=== PATIENT | female | born 1990 | race American Indian/Alaskan Native ===

== ENCOUNTER 2016-07-08 20:15 | Emergency (ER) | payer MEDICAID ==
[2016-07-08 20:31] VITALS: BP 139/93
[2016-07-08] MEDS ORDERED: PROVENTIL IH ONE (20:31)
--- NOTE | 2016-07-08 21:23 | Emergency Department Report ---
ED Asthma HPI - General Chief Complaint: Adult Asthma Stated Complaint: ASTHMA Time Seen by Provider: 07/08/16 21:18 Source: patient Mode of arrival: Ambulatory Limitations: No Limitations - History of Present Illness Initial Comments: 26-year-old -[place] female with a past medical history of asthma comes in reporting shortness of breathing and wheezing since Wednesday. Patient reports that she should feel Ventolin but has run out of medication on Wednesday as well she reports is her first attacks this year. She also reports that she suffers from allergies and takes Benadryl. Patient also reports a past medical history of hypertension and is currently on lisinopril 20 mg by mouth daily. Patient denies any other problems at this time he does admit that she feels better with the one treatment. - Related Data Previous Rx's Medication Instructions Recorded Last Taken Type HYDROcodone/APAP 10-325 [Steward 1 each PO Q6HR PRN #14 tablet 01/30/14 Unknown Rx 10-325 mg TAB] Amoxicillin/K Clav Tab [Augmentin 1 tab PO BID #20 tablet 08/08/14 Unknown Rx 875MG TAB] Loratadine [Claritin] 10 mg PO DAILY #30 tablet 08/08/14 Unknown Rx Prednisone [predniSONE 10 mg 10 mg PO .TAPER #1 tab.ds.pk 08/08/14 Unknown Rx (6-Day Pack, 21 Tabs)] Fluticasone/Salmeterol [Advair 1 puff IH BID #1 disk.w.dev 10/21/15 Unknown Rx Diskus 250-50 mcg] Albuterol Sulfate [Ventolin HFA] 2 puff IH Q4H PRN #1 hfa.aer.ad 07/08/16 Unknown Rx Cetirizine HCl [ZyrTEC] 10 mg PO QDAY #30 capsule 07/08/16 Unknown Rx Fluticasone [Flonase] 1 spray NS QDAY #1 bottle 07/08/16 Unknown Rx Allergies Allergy/AdvReac Type Severity Reaction Status Date / Time No Known Allergies Allergy Unverified 01/29/14 20:40 ED Review of Systems ROS: Stated complaint: ASTHMA Other details as noted in HPI Constitutional: denies: chills, fever Eyes: denies: eye pain, eye discharge, vision change ENT: denies: ear pain, throat pain Respiratory: shortness of breath, wheezing Cardiovascular: denies: chest pain, palpitations Endocrine: no symptoms reported Gastrointestinal: denies: abdominal pain, nausea, diarrhea Musculoskeletal: denies: back pain, joint swelling, arthralgia ED Past Medical Hx - Past Medical History Hx Hypertension: Yes Hx CVA: Yes Hx Congestive Heart Failure: No Hx Diabetes: No Hx Asthma: Yes Hx COPD: No Hx HIV: No - Surgical History Additional Surgical History: - Social History Smoking Status: Never Smoker Substance Use Type: None - Medications Home Medications: Home Medications Medication Instructions Recorded Confirmed Last Taken Type HYDROcodone/APAP 10-325 [Steward 1 each PO Q6HR PRN #14 tablet 01/30/14 10/20/15 Unknown Rx 10-325 mg TAB] Amoxicillin/K Clav Tab [Augmentin 1 tab PO BID #20 tablet 08/08/14 10/20/15 Unknown Rx 875MG TAB] Loratadine [Claritin] 10 mg PO DAILY #30 tablet 08/08/14 10/20/15 Unknown Rx Prednisone [predniSONE 10 mg 10 mg PO .TAPER #1 tab.ds.pk 08/08/14 10/20/15 Unknown Rx (6-Day Pack, 21 Tabs)] Fluticasone/Salmeterol [Advair 1 puff IH BID #1 disk.w.dev 10/21/15 Unknown Rx Diskus 250-50 mcg] Albuterol Sulfate [Ventolin HFA] 2 puff IH Q4H PRN #1 hfa.aer.ad 07/08/16 Unknown Rx Cetirizine HCl [ZyrTEC] 10 mg PO QDAY #30 capsule 07/08/16 Unknown Rx Fluticasone [Flonase] 1 spray NS QDAY #1 bottle 07/08/16 Unknown Rx ED Physical Exam - General Limitations: No Limitations - Eye Eye exam: Present: normal appearance, PERRL, EOMI - ENT ENT exam: Present: normal exam - Neck Neck exam: Present: normal inspection - Respiratory Respiratory exam: Present: normal lung sounds bilaterally - Cardiovascular Cardiovascular Exam: Present: regular rate, normal rhythm, normal heart sounds - GI/Abdominal GI/Abdominal exam: Present: soft. Absent: distended, tenderness ED Course Vital Signs 07/08/16 07/08/16 07/08/16 20:23 20:39 20:49 Temperature 98.2 F Pulse Rate 65 Pulse Rate [ 71 74 Anterior Bilateral Throughout] Respiratory 20 Rate Respiratory 16 16 Rate [Anterior Bilateral Throughout] Blood Pressure 139/93 Blood Pressure 139/93 [Left] O2 Sat by Pulse 100 Oximetry - Reevaluation(s) Reevaluation #1: 07/08/16 21:20 Patient reports she feels much better after having the one treatment. ED Medical Decision Making - Medical Decision Making Patient has been evaluated by this provider fast track. Discussed the patient that we will refill her Ventolin I will place her on Zyrtec for Flonase for allergies for her to continue with her lisinopril 20 mg daily and follow-up with her primary care provider. Patient verbalized understanding Critical care attestation.: If time is entered above; I have spent that time in minutes in the direct care of this critically ill patient, excluding procedure time. ED Disposition Clinical Impression: Acute asthma exacerbation Qualifiers: Asthma severity: unspecified severity Qualified Code(s): J45.901 - Unspecified asthma with (acute) exacerbation Seasonal allergic rhinitis Qualifiers: Allergic rhinitis trigger: unspecified Qualified Code(s): J30.2 - Other seasonal allergic rhinitis Disposition: DISCHARGED TO HOME OR SELFCARE Is pt being admited?: No Does the pt Need Aspirin: No Condition: Stable Additional Instructions: These take the Zyrtec; Flonase as prescribed. Use the Ventolin when necessary for shortness of breath and wheezing. Follow up with her primary care provider for further evaluation. Prescriptions: Albuterol Sulfate [Ventolin HFA] 2 puff IH Q4H PRN #1 hfa.aer.ad PRN Reason: Shortness Of Breath Cetirizine HCl [ZyrTEC] 10 mg PO QDAY #30 capsule Fluticasone [Flonase] 1 spray NS QDAY #1 bottle Forms: Work/School Release Form(ED)
== END 2016-07-08 22:02 | disposition home or self-care (01) ==
LOC: ED 20:15
DX: J45.901 Unspecified asthma with (acute) exacerbation (principal); J30.2 Other seasonal allergic rhinitis; I63.9 Cerebral infarction, unspecified
CPT/HCPCS: 94640

== ENCOUNTER 2016-07-16 08:54 | Emergency (ER) | payer MEDICAID ==
[2016-07-16 09:48] VITALS: BP 140/71
--- NOTE | 2016-07-16 11:11 | Emergency Department Report ---
ED Asthma HPI - General Chief Complaint: Adult Asthma Stated Complaint: LILO Time Seen by Provider: 07/16/16 11:04 Source: patient Mode of arrival: Ambulatory Limitations: No Limitations - History of Present Illness Initial Comments: 26-year-old -[place] female with a past medical history of asthma and wheezing comes in for wheezing this has been present for the last 2 weeks. Patient reports that she was transported here by EMS and was given a nebulizer treatment in route to the hospital. Patient was recently seen here on 2016 for the same issue. Patient does complain of chest soreness from coughing and only hurts when she coughs. Patient is currently on Flonase Zyrtec Ventolin for her asthma. She has no known drug allergies MD Complaint: wheezing - Related Data Previous Rx's Medication Instructions Recorded Last Taken Type Prednisone [predniSONE 10 mg 10 mg PO .TAPER #1 tab.ds.pk 08/08/14 Unknown Rx (6-Day Pack, 21 Tabs)] Fluticasone/Salmeterol [Advair 1 puff IH BID #1 disk.w.dev 10/21/15 Unknown Rx Diskus 250-50 mcg] Albuterol Sulfate [Ventolin HFA] 2 puff IH Q4H PRN #1 hfa.aer.ad 07/08/16 Unknown Rx Cetirizine HCl [ZyrTEC] 10 mg PO QDAY #30 capsule 07/08/16 Unknown Rx Fluticasone [Flonase] 1 spray NS QDAY #1 bottle 07/08/16 Unknown Rx Fluticasone/Salmeterol [Advair 2 puff PO BID #1 blst.w.dev 07/16/16 Unknown Rx 250-50 Diskus] Allergies Allergy/AdvReac Type Severity Reaction Status Date / Time No Known Allergies Allergy Unverified 01/29/14 20:40 ED Review of Systems ROS: Stated complaint: LILO Other details as noted in HPI Constitutional: denies: chills, fever Eyes: denies: eye pain, eye discharge, vision change ENT: denies: ear pain, throat pain Respiratory: cough, wheezing Cardiovascular: denies: chest pain, palpitations Endocrine: no symptoms reported Gastrointestinal: denies: abdominal pain, nausea, diarrhea Genitourinary: denies: urgency, dysuria, discharge ED Past Medical Hx - Past Medical History Hx Hypertension: Yes Hx CVA: Yes Hx Congestive Heart Failure: No Hx Diabetes: No Hx Asthma: Yes Hx COPD: No Hx HIV: No - Surgical History Additional Surgical History: - Social History Smoking Status: Never Smoker Substance Use Type: None - Medications Home Medications: Home Medications Medication Instructions Recorded Confirmed Last Taken Type Prednisone [predniSONE 10 mg 10 mg PO .TAPER #1 tab.ds.pk 08/08/14 10/20/15 Unknown Rx (6-Day Pack, 21 Tabs)] Fluticasone/Salmeterol [Advair 1 puff IH BID #1 disk.w.dev 10/21/15 Unknown Rx Diskus 250-50 mcg] Albuterol Sulfate [Ventolin HFA] 2 puff IH Q4H PRN #1 hfa.aer.ad 07/08/16 Unknown Rx Cetirizine HCl [ZyrTEC] 10 mg PO QDAY #30 capsule 07/08/16 Unknown Rx Fluticasone [Flonase] 1 spray NS QDAY #1 bottle 07/08/16 Unknown Rx Fluticasone/Salmeterol [Advair 2 puff PO BID #1 blst.w.dev 07/16/16 Unknown Rx 250-50 Diskus] ED Physical Exam - General Limitations: No Limitations General appearance: alert, in no apparent distress - Eye Eye exam: Present: normal appearance, EOMI - ENT ENT exam: Present: mucous membranes moist - Respiratory Respiratory exam: Present: normal lung sounds bilaterally, chest wall tenderness - Cardiovascular Cardiovascular Exam: Present: regular rate, normal rhythm, normal heart sounds - GI/Abdominal GI/Abdominal exam: Present: soft. Absent: distended, tenderness ED Course Vital Signs 07/16/16 09:41 Temperature 97.9 F Pulse Rate 73 Respiratory 18 Rate Blood Pressure 140/71 O2 Sat by Pulse 100 Oximetry ED Medical Decision Making - Medical Decision Making Patient's been evaluated by this provider in fast track. Discussed the patient and give her Tylenol No. 3 that would help with cough suppressant as well as her chest soreness. Discussed the patient op place her back on Advair 250/50 g 1 puff twice a day. Also recommend patient to continue with her other asthma and allergy medication and follow-up with [facility] which she reports is her primary care provider. Critical care attestation.: If time is entered above; I have spent that time in minutes in the direct care of this critically ill patient, excluding procedure time. ED Disposition Disposition: DISCHARGED TO HOME OR SELFCARE Is pt being admited?: No Does the pt Need Aspirin: No Condition: Stable Additional Instructions: Please use your asthma medicine as prescribed. Follow-up with [facility] for further evaluation. Prescriptions: Fluticasone/Salmeterol [Advair 250-50 Diskus] 2 puff PO BID #1 blst.w.dev Referrals: PRIMARY CARE, [Primary Care Provider] - 3-5 Days [facility] [Outside] - 3-5 Days Forms: Work/School Release Form(ED)
[2016-07-16] MEDS ORDERED: TYLENOL #3 PO ONE (11:12)
== END 2016-07-16 11:35 | disposition home or self-care (01) ==
LOC: ED 08:54
DX: J45.909 Unspecified asthma, uncomplicated (principal); I10 Essential (primary) hypertension; I63.9 Cerebral infarction, unspecified
CPT/HCPCS: 99282

== ENCOUNTER 2016-10-03 22:08 | Emergency (ER) | payer MEDICAID ==
[2016-10-03 23:38] LABS: Basophils % (Auto) 1.3 % (0.0-1.8); Eosinophils % (Auto) 3.6 % (0.0-4.3); Hematocrit 37.9 % (30.3-42.9); Hemoglobin 12.5 gm/dl (10.1-14.3); Mean Corpuscular HGB Conc 33 % (30-34); Mean Corpuscular Hemoglobin 29 pg (28-32); Mean Corpuscular Volume 88 fl (79-97); Platelet Count 274 K/mm3 (140-440); Red Blood Count 4.31 M/mm3 (3.65-5.03); White Blood Count 5.7 K/mm3 (4.5-11.0)
[2016-10-03 23:39] LABS: Anion Gap 15 mmol/L; Blood Urea Nitrogen 7 mg/dL (7-17); Calcium 9.2 mg/dL (8.4-10.2); Carbon Dioxide 25 mmol/L (22-30); Chloride 104.7 mmol/L (98-107); Glucose 88 mg/dL (65-100); Potassium 3.6 mmol/L (3.6-5.0); Sodium 141 mmol/L (137-145)
[2016-10-03] MEDS ORDERED: NACL 0.9% 500 ML 500 ML IV ONE (23:50)
[2016-10-03] MEDS ORDERED: REGLAN IV PRN (23:50)
[2016-10-03] MEDS ORDERED: BENADRYL IV ONE (23:50)
[2016-10-03 23:56] LABS: Erythrocyte Sedimentation Rate 10 mm/Hr (0-20)
[2016-10-04 00:03] LABS: Bilirubin,Urine NEG (Negative); Blood,Urine NEG (Negative); Ketones,Urine NEG (Negative); Leukocyte Esterase,Urine TR (Negative); Mucus,Urine FEW /HPF; Nitrite,Urine NEG (Negative); Protein,Urine <15 mg/dL mg/dL (Negative); Urobilinogen,Urine < 2.0 mg/dL (<2.0)
[2016-10-04] MEDS ORDERED: REGLAN IV ONE (00:22)
--- NOTE | 2016-10-04 01:11 | Cat Scan Report ---
FINAL REPORT PROCEDURE: CT HEAD/BRAIN WO CON TECHNIQUE: Computerized tomography of the head was performed without contrast material. HISTORY: headache COMPARISON: No prior studies are available for comparison. FINDINGS: Skull and scalp: Normal. Paranasal sinuses: Normal. Ventricles and subarachnoid spaces: Normal. Cerebrum: No evidence of hemorrhage, acute infarction or mass . Cerebellum and brainstem: No evidence of hemorrhage, acute infarction or mass. Vasculature: Normal. Comments: None. IMPRESSION: Normal Examination
--- NOTE | 2016-10-04 01:27 | Emergency Department Report ---
ED Headache HPI - General Chief Complaint: Headache Stated Complaint: HEADACHE Source: patient - History of Present Illness Initial Comments: Vision states she has a long history of this type of headache but this one is a little worse patient states she has never been seen for her headaches is never had a CAT scan for her headaches and takes random medications at home for her medics to include gabapentin which was not prescribed to her for her headaches. Patient denies any blurred vision, neck pain, photophobia, nausea vomiting, paresthesia, weakness or dizziness. Timing/Duration: 1-3 hours Quality: severe Head Injury Location: temporal Recent Head Trauma: frequent headaches, chronic headaches Associated Symptoms: denies: confusion, fatigue, facial pain, fever/chills, flushing, loss of consciousness, nausea/vomiting, nasal congestion, nasal drainage, numbness in legs/feet, seizures, sinus infection, vision changes, weakness Allergies/Adverse Reactions: Allergies No Known Allergies Allergy (Unverified 01/29/14 20:40) Home Medications: Ambulatory Orders Prednisone [predniSONE 10 mg (6-Day Pack, 21 Tabs)] 10 mg PO .TAPER #1 tab.ds.pk 08/08/14 Fluticasone/Salmeterol [Advair Diskus 250-50 mcg] 1 puff IH BID #1 disk.w.dev Albuterol Sulfate [Ventolin HFA] 2 puff IH Q4H PRN #1 hfa.aer.ad 07/08/16 Cetirizine HCl [ZyrTEC] 10 mg PO QDAY #30 capsule 07/08/16 Fluticasone [Flonase] 1 spray NS QDAY #1 bottle 07/08/16 Fluticasone/Salmeterol [Advair 250-50 Diskus] 2 puff PO BID #1 blst.w.dev Butalb/Acetamin/Caff 50-325-40 [Fioricet] 1 each PO Q4H PRN #15 tablet 10/04/16 Metoclopramide [Reglan] 10 mg IM TID PRN #15 vial 10/04/16 ED Review of Systems ROS: Stated complaint: HEADACHE Other details as noted in HPI ED Past Medical Hx - Past Medical History Previous Medical History?: Yes Hx Hypertension: Yes Hx CVA: No Hx Congestive Heart Failure: No Hx Diabetes: No Hx Asthma: Yes Hx COPD: No Hx HIV: No - Surgical History Past Surgical History?: Yes Additional Surgical History: - Social History Smoking Status: Current Some Day Smoker Substance Use Type: Alcohol - Medications Home Medications: Home Medications Medication Instructions Recorded Confirmed Last Taken Type Prednisone [predniSONE 10 mg 10 mg PO .TAPER #1 tab.ds.pk 08/08/14 10/20/15 Unknown Rx (6-Day Pack, 21 Tabs)] Fluticasone/Salmeterol [Advair 1 puff IH BID #1 disk.w.dev 10/21/15 Unknown Rx Diskus 250-50 mcg] Albuterol Sulfate [Ventolin HFA] 2 puff IH Q4H PRN #1 hfa.aer.ad 07/08/16 Unknown Rx Cetirizine HCl [ZyrTEC] 10 mg PO QDAY #30 capsule 07/08/16 Unknown Rx Fluticasone [Flonase] 1 spray NS QDAY #1 bottle 07/08/16 Unknown Rx Fluticasone/Salmeterol [Advair 2 puff PO BID #1 blst.w.dev 07/16/16 Unknown Rx 250-50 Diskus] Butalb/Acetamin/Caff 50-325-40 1 each PO Q4H PRN #15 tablet 10/04/16 Unknown Rx [Fioricet] Metoclopramide [Reglan] 10 mg IM TID PRN #15 vial 10/04/16 Unknown Rx ED Physical Exam - General Limitations: No Limitations General appearance: alert, in no apparent distress - Head Head exam: Present: atraumatic, normocephalic - Eye Eye exam: Present: normal appearance, PERRL, EOMI - ENT ENT exam: Present: mucous membranes moist - Neck Neck exam: Present: normal inspection, full ROM. Absent: tenderness, meningismus, lymphadenopathy - Respiratory Respiratory exam: Present: normal lung sounds bilaterally. Absent: respiratory distress - Cardiovascular Cardiovascular Exam: Present: regular rate - Back Exam Back exam: Present: full ROM - Neurological Exam Neurological exam: Present: alert, oriented X3, CN II-XII intact, normal gait - Psychiatric Psychiatric exam: Present: normal affect, normal mood. Absent: depressed, agitated, anxious, flat affect, manic, homicidal ideation, suicidal ideation - Skin Skin exam: Present: warm, dry, intact, normal color. Absent: rash ED Course Vital Signs 10/03/16 22:31 Temperature 98.7 F Pulse Rate 73 Respiratory 18 Rate Blood Pressure 139/90 O2 Sat by Pulse 100 Oximetry - Reevaluation(s) Reevaluation #1: 10/04/16 01:30 Patient states headache is totally resolved, patient is smiling, states she is ready for discharge. I discussed with patient the need for her to follow up with a neurologist or even a primary care physician outside of the emergency department to find out the origin of her headaches. I did review the results of her normal labs and normal CAT scan with her. ED Medical Decision Making - Lab Data Result diagrams: 10/03/16 23:07 10/03/16 23:07 - Radiology Data Radiology results: report reviewed Critical care attestation.: If time is entered above; I have spent that time in minutes in the direct care of this critically ill patient, excluding procedure time. ED Disposition Clinical Impression: Headache Disposition: DC-01 TO HOME OR SELFCARE Is pt being admited?: No Condition: Stable Instructions: Acute Headache (ED) Prescriptions: Butalb/Acetamin/Caff 50-325-40 [Fioricet] 1 each PO Q4H PRN #15 tablet PRN Reason: Headache Metoclopramide [Reglan] 10 mg IM TID PRN #15 vial PRN Reason: Headache Referrals: PRIMARY CARE, [Primary Care Provider] - 3-5 Days CEFERINO GATES MD [Referring] - 3-5 Days
[2016-10-04 01:40] VITALS: BP 145/92
== END 2016-10-04 01:46 | disposition home or self-care (01) ==
LOC: ED 22:08
DX: R51 Headache (principal); I10 Essential (primary) hypertension; J45.909 Unspecified asthma, uncomplicated; F17.210 Nicotine dependence, cigarettes, uncomplicated
CPT/HCPCS: 36415; 70450; 80048; 81001; 81025; 84703; 85025; 85652; 96374; 96375; 99284; J1200; J7040; J2765

== ENCOUNTER 2018-07-10 14:25 | Emergency (ER) | payer MEDICAID ==
[2018-07-10 14:36] VITALS: BP 144/90
--- NOTE | 2018-07-10 15:58 | XRay Report ---
PROCEDURE: XR CHEST ROUTINE 2V TECHNIQUE: PA and lateral HISTORY: sob and wheezing COMPARISONS: None FINDINGS: Trachea midline. Heart size normal. No pneumothorax. No sizable effusion. No acute airspace disease. No acute bony abnormality. IMPRESSION: No active pulmonary disease.. This document is electronically signed by Juan Ramon Fraire MD., Jul 10 2018 03:56:25 PM ET
[2018-07-10] MEDS ORDERED: DUONEB *Not for PRN Use IH ONE (17:08)
[2018-07-10] MEDS ORDERED: IBUPROFEN PO ONE (17:25)
[2018-07-10] MEDS ORDERED: DELTASONE PO ONE (17:25)
--- NOTE | 2018-07-10 17:46 | Emergency Department Report ---
- General Chief Complaint: Upper Respiratory Infection Stated Complaint: ASTHMA/HEADACHE Time Seen by Provider: 07/10/18 17:24 Source: patient Mode of arrival: Ambulatory Limitations: No Limitations - History of Present Illness Initial Comments: Patient was terminated the emergency room history of asthma as shortness of breath with wheezing 3 days. Patient has had asthma symptoms as 4/10 on 1-10 scale. Symptoms are exacerbated by environmental exposure, symptoms relieved by nothing st but has not she is out of albuterol inhaler. MD Complaint: cough (endocrine ER visit: She needs to I mild stridor,), sore throat, rhinorrhea ( no), nasal congestion ( colds that F without via), sinus pain Onset/Timin -: week(s) Severity: moderate Severity scale (0 -10): 5 (1) Consistency: constant Improves With: nothing (current) Worsens With: other (environmental exposure ) Context: sick contacts Associated Symptoms: headache, rhinorrhea, nasal congestion, sore throat, cough, shortness of breath Treatments Prior to Arrival: none - Related Data Previous Rx's Medication Instructions Recorded Last Taken Type Prednisone [predniSONE 10 mg 10 mg PO .TAPER #1 tab.ds.pk 08/08/14 Unknown Rx (6-Day Pack, 21 Tabs)] Fluticasone/Salmeterol [Advair 1 puff IH BID #1 disk.w.dev 10/21/15 Unknown Rx Diskus 250-50 mcg] Albuterol Sulfate [Ventolin HFA] 2 puff IH Q4H PRN #1 hfa.aer.ad 07/08/16 Unknown Rx Cetirizine HCl [ZyrTEC] 10 mg PO QDAY #30 capsule 07/08/16 Unknown Rx Fluticasone [Flonase] 1 spray NS QDAY #1 bottle 07/08/16 Unknown Rx Fluticasone/Salmeterol (Nf) 2 puff PO BID #1 blst.w.dev 07/16/16 Unknown Rx [Advair 250-50 Diskus] Butalb/Acetamin/Caff 50-325-40 1 each PO Q4H PRN #15 tablet 10/04/16 Unknown Rx [Fioricet] Metoclopramide [Reglan] 10 mg IM TID PRN #15 vial 10/04/16 Unknown Rx ALBUTEROL Inhaler(NF) [VENTOLIN 2 puff IH Q4H PRN #1 inha 07/10/18 Unknown Rx Inhaler(NF)] Azithromycin [Zithromax Z-ANGEL] 250 mg PO DAILY #6 tab 07/10/18 Unknown Rx Benzonatate [Tessalon Perles] 100 mg PO Q8HR PRN #30 capsule 07/10/18 Unknown Rx Ibuprofen 800 mg PO TID PRN #30 tablet 07/10/18 Unknown Rx predniSONE [Deltasone] 40 mg PO QDAY 5 Days #10 tab 07/10/18 Unknown Rx Allergies Allergy/AdvReac Type Severity Reaction Status Date / Time No Known Allergies Allergy Unverified 01/29/14 20:40 ED Review of Systems ROS: Stated complaint: ASTHMA/HEADACHE Other details as noted in HPI Constitutional: denies: chills, fever Eyes: denies: eye pain, eye discharge, vision change ENT: throat pain (she moves above. This is no contact. His), congestion (while in) Respiratory: cough, shortness of breath, wheezing Cardiovascular: denies: chest pain, palpitations Endocrine: no symptoms reported (in the) Gastrointestinal: denies: abdominal pain, nausea, vomiting, diarrhea Genitourinary: as per HPI. denies: urgency, dysuria, discharge Musculoskeletal: denies: back pain, joint swelling, arthralgia Skin: denies: rash, lesions Neurological: headache (is). denies: weakness, paresthesias Psychiatric: denies: anxiety, depression Hematological/Lymphatic: denies: easy bleeding, easy bruising ED Past Medical Hx - Past Medical History Previous Medical History?: Yes Hx Hypertension: Yes Hx CVA: No Hx Congestive Heart Failure: No Hx Diabetes: No Hx Asthma: Yes Hx COPD: No Hx HIV: No - Surgical History Past Surgical History?: Yes Additional Surgical History: - Social History Smoking Status: Never Smoker Substance Use Type: None - Medications Home Medications: Home Medications Medication Instructions Recorded Confirmed Last Taken Type Prednisone [predniSONE 10 mg 10 mg PO .TAPER #1 tab.ds.pk 15 10/20/15 Unknown Rx (6-Day Pack, 21 Tabs)] Fluticasone/Salmeterol [Advair 1 puff IH BID #1 disk.w.dev 10/21/15 Unknown Rx Diskus 250-50 mcg] Albuterol Sulfate [Ventolin HFA] 2 puff IH Q4H PRN #1 hfa.aer.ad 07/08/16 Unknown Rx Cetirizine HCl [ZyrTEC] 10 mg PO QDAY #30 capsule 07/08/16 Unknown Rx Fluticasone [Flonase] 1 spray NS QDAY #1 bottle 07/08/16 Unknown Rx Fluticasone/Salmeterol (Nf) 2 puff PO BID #1 blst.w.dev 07/16/16 Unknown Rx [Advair 250-50 Diskus] Butalb/Acetamin/Caff 50-325-40 1 each PO Q4H PRN #15 tablet 10/04/16 Unknown Rx [Fioricet] Metoclopramide [Reglan] 10 mg IM TID PRN #15 vial 10/04/16 Unknown Rx ALBUTEROL Inhaler(NF) [VENTOLIN 2 puff IH Q4H PRN #1 inha 07/10/18 Unknown Rx Inhaler(NF)] Azithromycin [Zithromax Z-ANGEL] 250 mg PO DAILY #6 tab 07/10/18 Unknown Rx Benzonatate [Tessalon Perles] 100 mg PO Q8HR PRN #30 capsule 07/10/18 Unknown Rx Ibuprofen 800 mg PO TID PRN #30 tablet 07/10/18 Unknown Rx predniSONE [Deltasone] 40 mg PO QDAY 5 Days #10 tab 07/10/18 Unknown Rx ED Physical Exam - General Limitations: No Limitations General appearance: alert, in no apparent distress - Head Head exam: Present: atraumatic, normocephalic, normal inspection ( level of) - Eye Eye exam: Present: normal appearance, PERRL, EOMI ( is) Pupils: Present: normal accommodation - ENT ENT exam: Present: normal orophraynx, mucous membranes moist, TM's normal bilaterally, normal external ear exam - Neck Neck exam: Present: normal inspection, full ROM. Absent: tenderness, meningismus, lymphadenopathy, thyromegaly - Respiratory Respiratory exam: Present: wheezes, chest wall tenderness (right lateral chest wall pain with cough). Absent: rales, rhonchi, stridor (abdomen is) - Cardiovascular Cardiovascular Exam: Present: regular rate, normal rhythm. Absent: systolic murmur, diastolic murmur, rubs, gallop - GI/Abdominal GI/Abdominal exam: Present: soft, normal bowel sounds. Absent: tenderness, br uit, hernia ( time there is no) - Rectal Rectal exam: Present: deferred - Extremities Exam Extremities exam: Present: normal inspection (level patient), full ROM ( is), normal capillary refill ( out of lithotomy, there is no), pedal edema - Back Exam Back exam: Present: normal inspection (twice,), full ROM. Absent: tenderness, CVA tenderness (R), CVA tenderness (L), rash noted (he is) - Neurological Exam Neurological exam: Present: alert, oriented X3, CN II-XII intact, normal gait, reflexes normal - Psychiatric Psychiatric exam: Present: normal affect, normal mood - Skin Skin exam: Present: warm, dry, intact, normal color. Absent: rash ED Course Vital Signs 07/10/18 07/10/18 07/10/18 14:33 17:02 17:39 Temperature 98.3 F Pulse Rate 91 H Respiratory 18 16 16 Rate Blood Pressure 144/90 O2 Sat by Pulse 97 98 Oximetry ED Medical Decision Making - Radiology Data Radiology results: report reviewed, image reviewed lainey cxr no infiltrates no opacities - Medical Decision Making breathing improved , pt is ambulatory without increased wheezing and shortness of breath plan dc to home with rx for albuterol inhale,prednisone, tessalon pears, and ibuprofen, pt verbalized agreement and understanding and of discharge plan. Critical care attestation.: If time is entered above; I have spent that time in minutes in the direct care of this critically ill patient, excluding procedure time. ED Disposition Clinical Impression: Bronchitis Disposition: DC-01 TO HOME OR SELFCARE Is pt being admited?: No Does the pt Need Aspirin: No Condition: Stable Instructions: Acute Bronchitis (ED) Prescriptions: predniSONE [Deltasone] 40 mg PO QDAY 5 Days #10 tab Ibuprofen 800 mg PO TID PRN #30 tablet PRN Reason: pain fever . Benzonatate [Tessalon Perles] 100 mg PO Q8HR PRN #30 capsule PRN Reason: Cough ALBUTEROL Inhaler(NF) [VENTOLIN Inhaler(NF)] 2 puff IH Q4H PRN #1 inha PRN Reason: shortness of breath wheezing Azithromycin [Zithromax Z-ANGEL] 250 mg PO DAILY #6 tab Referrals: [facility] [Outside] - 3-5 Days Forms: Work/School Release Form(ED) Time of Disposition: 17:57
== END 2018-07-10 18:17 | disposition home or self-care (01) ==
LOC: ED 14:25
DX: J45.909 Unspecified asthma, uncomplicated (principal); I10 Essential (primary) hypertension
CPT/HCPCS: 71046; 94640; 99283; J7512

== ENCOUNTER 2018-09-18 05:35 | Emergency (ER) | payer MEDICAID ==
[2018-09-18] MEDS ORDERED: DUONEB *Not for PRN Use IH ONE ×2 (05:52→05:57)
[2018-09-18] MEDS ORDERED: SOLU-Medrol ONE (05:52)
[2018-09-18] MEDS ORDERED: SOLU-Medrol IM ONE (05:57)
--- NOTE | 2018-09-18 06:42 | XRay Report ---
CHEST 1 VIEW INDICATION / CLINICAL INFORMATION: LILO. COMPARISON: None available. FINDINGS: SUPPORT DEVICES: None. HEART / MEDIASTINUM: No significant abnormality. LUNGS / PLEURA: No significant pulmonary or pleural abnormality. No pneumothorax. ADDITIONAL FINDINGS: No significant additional findings. IMPRESSION: 1. No acute findings. Signer Name: Desmond David MD Signed: 09/18/2018 6:38 AM Workstation Name: [id number]
--- NOTE | 2018-09-18 07:38 | Emergency Department Report ---
ED Shortness of Breath HPI - General Chief Complaint: Dyspnea/Respdistress Stated Complaint: ASTHMA Time Seen by Provider: 09/18/18 07:32 Source: patient, EMS Mode of arrival: Ambulatory Limitations: No Limitations - History of Present Illness Initial Comments: This is a 28-year-old female nontoxic, well nourished in appearance, no acute signs of distress presents to the ED with c/o of acute on chronic asthma exacerbation. Patient stated she is out of her albuterol inhaler 1 month. Patient stated that she has seasonal allergies to pollen and has been outside that might have triggered her symptoms. Patient denies any cough. Patient denies any sick contact. Patient denies any recent travels, long car, recent hospital stays. Patient denies any calf pain or calf tenderness. Patient denies any chest pain, short of breath, fever, chills, nausea, vomiting, hemoptysis, numbness, tingling, headache or stiff neck. Past medical history includes asthma. MD Complaint: shortness of breath, "asthma attack" -: days(s) Severity: mild Pain Scale: 0 Improves With: nothing Worsens With: nothing Known History Of: asthma Associated Symptoms: denies other symptoms Treatments Prior to Arrival: none - Related Data Home Oxygen Therapy: No Previous Rx's Medication Instructions Recorded Last Taken Type Prednisone [predniSONE 10 mg 10 mg PO .TAPER #1 tab.ds.pk 08/08/14 Unknown Rx (6-Day Pack, 21 Tabs)] Fluticasone/Salmeterol [Advair 1 puff IH BID #1 disk.w.dev 10/21/15 Unknown Rx Diskus 250-50 mcg] Albuterol Sulfate [Ventolin HFA] 2 puff IH Q4H PRN #1 hfa.aer.ad 07/08/16 Unknown Rx Cetirizine HCl [ZyrTEC 10mg cap] 10 mg PO QDAY #30 capsule 07/08/16 Unknown Rx Fluticasone [Flonase] 1 spray NS QDAY #1 bottle 07/08/16 Unknown Rx Fluticasone/Salmeterol (Nf) 2 puff PO BID #1 blst.w.dev 07/16/16 Unknown Rx [Advair 250-50 Diskus] Butalb/Acetamin/Caff 50-325-40 1 each PO Q4H PRN #15 tablet 10/04/16 Unknown Rx [Fioricet] Metoclopramide [Reglan] 10 mg IM TID PRN #15 vial 10/04/16 Unknown Rx ALBUTEROL Inhaler(NF) [VENTOLIN 2 puff IH Q4H PRN #1 inha 07/10/18 Unknown Rx Inhaler(NF)] Azithromycin [Zithromax Z-ANGEL] 250 mg PO DAILY #6 tab 07/10/18 Unknown Rx Benzonatate [Tessalon Perles] 100 mg PO Q8HR PRN #30 capsule 07/10/18 Unknown Rx Ibuprofen [Ibuprofen 800] 800 mg PO TID PRN #30 tablet 07/10/18 Unknown Rx predniSONE [Deltasone] 40 mg PO QDAY 5 Days #10 tab 07/10/18 Unknown Rx ALBUTEROL Inhaler (OR & NICU) 2 puff IH QID PRN #1 inhalation 09/18/18 Unknown Rx [ProAir HFA Inhaler] Prednisone [predniSONE 10 mg 10 mg PO .TAPER #1 tab.ds.pk 09/18/18 Unknown Rx (6-Day Pack, 21 Tabs)] Allergies Allergy/AdvReac Type Severity Reaction Status Date / Time No Known Allergies Allergy Unverified 01/29/14 20:40 ED Review of Systems ROS: Stated complaint: ASTHMA Other details as noted in HPI Constitutional: denies: chills, fever Eyes: denies: eye pain, eye discharge, vision change ENT: denies: ear pain, throat pain Respiratory: shortness of breath, wheezing. denies: cough Cardiovascular: denies: chest pain, palpitations Endocrine: no symptoms reported Gastrointestinal: denies: abdominal pain, nausea, diarrhea Genitourinary: denies: urgency, dysuria, discharge Musculoskeletal: denies: back pain, joint swelling, arthralgia Skin: denies: rash, lesions Neurological: denies: headache, weakness, paresthesias Psychiatric: denies: anxiety, depression Hematological/Lymphatic: denies: easy bleeding, easy bruising ED Past Medical Hx - Past Medical History Previous Medical History?: Yes Hx Hypertension: Yes Hx CVA: No Hx Congestive Heart Failure: No Hx Diabetes: No Hx Asthma: Yes Hx COPD: No Hx HIV: No - Surgical History Past Surgical History?: Yes Additional Surgical History: - Social History Smoking Status: Never Smoker Substance Use Type: Marijuana - Medications Home Medications: Home Medications Medication Instructions Recorded Confirmed Last Taken Type Prednisone [predniSONE 10 mg 10 mg PO .TAPER #1 tab.ds.pk 08/08/14 10/20/15 Unknown Rx (6-Day Pack, 21 Tabs)] Fluticasone/Salmeterol [Advair 1 puff IH BID #1 disk.w.dev 10/21/15 Unknown Rx Diskus 250-50 mcg] Albuterol Sulfate [Ventolin HFA] 2 puff IH Q4H PRN #1 hfa.aer.ad 07/08/16 Unknown Rx Cetirizine HCl [ZyrTEC 10mg cap] 10 mg PO QDAY #30 capsule 07/08/16 Unknown Rx Fluticasone [Flonase] 1 spray NS QDAY #1 bottle 07/08/16 Unknown Rx Fluticasone/Salmeterol (Nf) 2 puff PO BID #1 blst.w.dev 07/16/16 Unknown Rx [Advair 250-50 Diskus] Butalb/Acetamin/Caff 50-325-40 1 each PO Q4H PRN #15 tablet 10/04/16 Unknown Rx [Fioricet] Metoclopramide [Reglan] 10 mg IM TID PRN #15 vial 10/04/16 Unknown Rx ALBUTEROL Inhaler(NF) [VENTOLIN 2 puff IH Q4H PRN #1 inha 07/10/18 Unknown Rx Inhaler(NF)] Azithromycin [Zithromax Z-ANGEL] 250 mg PO DAILY #6 tab 07/10/18 Unknown Rx Benzonatate [Tessalon Perles] 100 mg PO Q8HR PRN #30 capsule 07/10/18 Unknown Rx Ibuprofen [Ibuprofen 800] 800 mg PO TID PRN #30 tablet 07/10/18 Unknown Rx predniSONE [Deltasone] 40 mg PO QDAY 5 Days #10 tab 07/10/18 Unknown Rx ALBUTEROL Inhaler (OR & NICU) 2 puff IH QID PRN #1 inhalation 09/18/18 Unknown Rx [ProAir HFA Inhaler] Prednisone [predniSONE 10 mg 10 mg PO .TAPER #1 tab.ds.pk 09/18/18 Unknown Rx (6-Day Pack, 21 Tabs)] ED Physical Exam - General Limitations: No Limitations General appearance: alert, in no apparent distress - Head Head exam: Present: atraumatic, normocephalic - Eye Eye exam: Present: normal appearance - Neck Neck exam: Present: normal inspection, full ROM. Absent: tenderness, meningismus, lymphadenopathy - Respiratory Respiratory exam: Present: normal lung sounds bilaterally, wheezes (bilateral upper and lower lobes was noted by fur stretcher prior to my exam). Absent: respiratory distress, rales, rhonchi, stridor, chest wall tenderness, accessory muscle use, decreased breath sounds, prolonged expiratory - Cardiovascular Cardiovascular Exam: Present: regular rate, normal rhythm, normal heart sounds. Absent: irregular rhythm, systolic murmur, diastolic murmur, rubs, gallop - Extremities Exam Extremities exam: Present: normal inspection, full ROM - Back Exam Back exam: Present: normal inspection, full ROM - Neurological Exam Neurological exam: Present: alert, oriented X3, normal gait - Psychiatric Psychiatric exam: Present: normal affect, normal mood - Skin Skin exam: Present: warm, dry, intact, normal color. Absent: rash ED Course Vital Signs 09/18/18 09/18/18 05:36 05:38 Temperature 98 F 98.0 F Pulse Rate 111 H 113 H Respiratory 18 18 Rate Blood Pressure 130/86 130/86 O2 Sat by Pulse 97 97 Oximetry - Reevaluation(s) Reevaluation #1: 09/18/18 07:36 Patient is speaking in full sentences with no signs of distress noted. ED Medical Decision Making - Medical Decision Making This is a 28-year-old female that presents with asthma exacerbation. Patient is stable and was examined by me. Chest x-ray has been obtained and dictated by the radiologist within normal limits. Patient is notified of the x-ray report with no questions noted by the patient. Patient did receive breathing treatment which patient the symptoms has resolved and subsided. Posttreatment and there is no wheezing upon auscultation. Patient is discharged with albuterol and prednisone. Patient was referred to Follow-up with a primary care doctor in 3-5 days or if symptoms worsen and continue return to emergency room as soon as possible. At time of discharge, the patient does not seem toxic or ill in appearance. No acute signs of distress noted. Patient agrees to discharge treatment plan of care. No further questions noted by the patient. This chart is dictated with using [employer] Critical care attestation.: If time is entered above; I have spent that time in minutes in the direct care of this critically ill patient, excluding procedure time. ED Disposition Clinical Impression: Asthma exacerbation Qualifiers: Asthma severity: mild Asthma persistence: intermittent Qualified Code(s): J45.21 - Mild intermittent asthma with (acute) exacerbation Disposition: TO HOME OR SELFCARE Is pt being admited?: No Does the pt Need Aspirin: No Condition: Stable Instructions: Asthma (ED) Additional Instructions: Follow-up with a primary care doctor in 3-5 days or if symptoms worsen and continue return to emergency room as soon as possible. Prescriptions: Prednisone [predniSONE 10 mg (6-Day Pack, 21 Tabs)] 10 mg PO .TAPER #1 tab.ds.pk ALBUTEROL Inhaler (OR & NICU) [ProAir HFA Inhaler] 2 puff IH QID PRN #1 inhalation PRN Reason: Shortness Of Breath Referrals: KAI CORDOVA MD [Primary Care Provider] - 3-5 Days PRIMARY MD PHI [Referring] - 3-5 Days GINA HANSON MD [Staff Physician] - 3-5 Days [facility] [Outside] - 3-5 Days [facility] [Outside] - 3-5 Days Forms: Work/School Release Form(ED)
[2018-09-18 07:46] VITALS: BP 132/81
== END 2018-09-18 07:45 | disposition home or self-care (01) ==
LOC: ED 05:35
DX: J45.901 Unspecified asthma with (acute) exacerbation (principal); I10 Essential (primary) hypertension; F12.90 Cannabis use, unspecified, uncomplicated; Z98.890 Other specified postprocedural states; Z79.899 Other long term (current) drug therapy
CPT/HCPCS: 71045; 94640; 96372; 99284; J2930

== ENCOUNTER 2020-04-12 22:00 | Emergency (ER) | payer MEDICAID ==
[2020-04-12] MEDS ORDERED: NEOMY 3.5 MG/BACIT 400 UNITS/POLY B 5000 UNITS/GM OINT PACKET TP ONE (23:32)
[2020-04-12] MEDS ORDERED: HYDROcodone/ACETAMINOPHEN 10-325MG TAB PO ONE (23:32)
[2020-04-12] MEDS ORDERED: DIPHtheria,PERTUSSIS(ACELL),TETANUS VACCINE/PF 0.5 ML VIAL IM ONE (23:34)
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
[2020-04-13 00:08] LABS: Basophils % (Auto) 0.5 % (0.0-1.8); Eosinophils % (Auto) 0.2 % (0.0-4.3); Hematocrit 37.3 % (30.3-42.9); Hemoglobin 12.4 gm/dl (10.1-14.3); Lymphocytes # (Auto) 1.2 K/mm3 (1.2-5.4); Lymphocytes % (Auto) 14.4 % (13.4-35.0); Mean Corpuscular HGB Conc 33 % (30-34); Mean Corpuscular Volume 87 fl (79-97); Monocytes # (Auto) 0.5 K/mm3 (0.0-0.8); Monocytes % (Auto) 6.2 % (0.0-7.3); Platelet Count 324 K/mm3 (140-440); Red Blood Count 4.28 M/mm3 (3.65-5.03); Red Cell Distribution Width 13.8 % (13.2-15.2)
[2020-04-13 00:25] LABS: Alanine Aminotransferase 21 units/L (7-56); Albumin 4.6 g/dL (3.9-5); Blood Urea Nitrogen 6 mg/dL (7-17); Calcium 9.2 mg/dL (8.4-10.2); Hemolysis Index 4
[2020-04-13 00:37] LABS: BUN/Creatinine Ratio 10
[2020-04-13 00:57] LABS: Bilirubin,Urine NEG (Negative); Blood,Urine NEG (Negative); Color,Urine Yellow (Yellow); Mucus,Urine FEW /HPF
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
[2020-04-13 03:04] VITALS: BP 122/76
== END 2020-04-13 03:06 | disposition home or self-care (01) ==
LOC: ED 22:00
DX: S70.12XA Contusion of left thigh, initial encounter (principal); S60.212A Contusion of left wrist, initial encounter; S20.319A Abrasion of unspecified front wall of thorax, initial encounter; S30.811A Abrasion of abdominal wall, initial encounter; I10 Essential (primary) hypertension; J45.909 Unspecified asthma, uncomplicated; Z98.890 Other specified postprocedural states; Z79.1 Long term (current) use of non-steroidal anti-inflammatories (NSAID); Z79.899 Other long term (current) drug therapy; V49.9XXA Car occupant (driver) (passenger) injured in unspecified traffic accident, initial encounter; Y93.89 Activity, other specified; Y92.410 Unspecified street and highway as the place of occurrence of the external cause; Y99.8 Other external cause status
CPT/HCPCS: 36415; 71260; 74177; 80053; 81001; 84703; 85025; 90471; 90715; 99284; A6250; Q9967

== ENCOUNTER 2020-11-06 09:37 | Emergency (ER) | payer MEDICAID, OTHER ==
[2020-11-06 09:45] VITALS: BP 128/73
--- NOTE | 2020-11-06 12:22 | Emergency Department Report ---
ED Headache HPI - General Chief Complaint: Headache Stated Complaint: HEADACHE Time Seen by Provider: 11/06/20 11:58 - History of Present Illness Initial Comments: 30-year-old female with a past medical history of asthma presents to the ER today with complaints of left temporal headache. She states that pain started gradually this morning. She described as a sharp intermittent pain. She denies any recent head injury. She states that sometimes the lights make it worse. She has had similar headaches in the past, and she states that she was told that it could be related to migraines from the ER doctor. She has not follow-up with her primary care doctor nor neurologist about the headaches. She has not take anything this morning for the headaches. She is not currently on any prescription medication for her headaches. She denies any associated nausea, vomiting, neck pain, fever, chills, vision changes, focal weakness, numbness, tingling or any additional symptoms at this time. Quality: mild, moderate, sharp Head Injury Location: temporal Allergies/Adverse Reactions: Allergies No Known Allergies Allergy (Unverified 01/29/14 20:40) Home Medications: Ambulatory Orders Fluticasone/Salmeterol [Advair Diskus 250-50 mcg] 1 puff IH BID #1 disk.w.dev 10/21/15 Albuterol Sulfate [Ventolin HFA] 2 puff IH Q4H PRN #1 hfa.aer.ad 07/08/16 Cetirizine HCl [ZyrTEC 10mg cap] 10 mg PO QDAY #30 capsule 07/08/16 Fluticasone [Flonase] 1 spray NS QDAY #1 bottle 07/08/16 Metoclopramide [Reglan] 10 mg IM TID PRN #15 vial 10/04/16 ALBUTEROL Inhaler(NF) [VENTOLIN Inhaler(NF)] 2 puff IH Q4H PRN #1 inha 07/10/18 Azithromycin [Zithromax Z-ANGEL] 250 mg PO DAILY #6 tab 07/10/18 Benzonatate [Tessalon Perles] 100 mg PO Q8HR PRN #30 capsule 07/10/18 Albuterol Mdi (or & Nicu Only) [ProAir HFA Inhaler] 2 puff IH QID PRN #1 inhalation 09/18/18 Acetaminophen/Codeine [Tylenol /Codeine # 3 tab] 1 tab PO Q4HR PRN #10 tablet 04/13/20 Ibuprofen [Motrin] 800 mg PO Q8HR PRN #30 tablet 04/13/20 Butalb/Acetamin/Caff 50-325-40 [Fioricet 50-325-40] 1 each PO Q4H PRN #15 tablet 11/06/20 ED Review of Systems ROS: Stated complaint: HEADACHE Other details as noted in HPI Comment: All other systems reviewed and negative Constitutional: denies: chills, fever Eyes: denies: eye pain, eye discharge, vision change ENT: denies: ear pain, throat pain Respiratory: denies: cough, shortness of breath, SOB with exertion, SOB at rest, wheezing Cardiovascular: denies: chest pain, palpitations, dyspnea on exertion, edema, syncope, paroxysmal nocturnal dyspnea Gastrointestinal: denies: abdominal pain, nausea, diarrhea, constipation, hematemesis, melena, hematochezia Genitourinary: denies: urgency, dysuria, discharge Musculoskeletal: denies: back pain, joint swelling, arthralgia Neurological: headache. denies: weakness, numbness, paresthesias, confusion, abnormal gait, vertigo Psychiatric: denies: anxiety, depression, auditory hallucinations, visual hallucinations, homicidal thoughts, suicidal thoughts Hematological/Lymphatic: denies: easy bleeding, easy bruising, swollen glands ED Past Medical Hx - Past Medical History Previous Medical History?: Yes Hx Hypertension: Yes Hx CVA: No Hx Congestive Heart Failure: No Hx Diabetes: No Hx Asthma: Yes Hx COPD: No Hx HIV: No - Surgical History Past Surgical History?: Yes Additional Surgical History: - Social History Smoking Status: Never Smoker Substance Use Type: None - Medications Home Medications: Home Medications Medication Instructions Recorded Confirmed Last Taken Type Fluticasone/Salmeterol [Advair 1 puff IH BID #1 disk.w.dev 10/21/15 Unknown Rx Diskus 250-50 mcg] Albuterol Sulfate [Ventolin HFA] 2 puff IH Q4H PRN #1 hfa.aer.ad 07/08/16 Unknown Rx Cetirizine HCl [ZyrTEC 10mg cap] 10 mg PO QDAY #30 capsule 07/08/16 Unknown Rx Fluticasone [Flonase] 1 spray NS QDAY #1 bottle 07/08/16 Unknown Rx Metoclopramide [Reglan] 10 mg IM TID PRN #15 vial 10/04/16 Unknown Rx ALBUTEROL Inhaler(NF) [VENTOLIN 2 puff IH Q4H PRN #1 inha 07/10/18 Unknown Rx Inhaler(NF)] Azithromycin [Zithromax Z-ANGEL] 250 mg PO DAILY #6 tab 07/10/18 Unknown Rx Benzonatate [Tessalon Perles] 100 mg PO Q8HR PRN #30 capsule 07/10/18 Unknown Rx Albuterol Mdi (or & Nicu Only) 2 puff IH QID PRN #1 inhalation 09/18/18 Unknown Rx [ProAir HFA Inhaler] Acetaminophen/Codeine [Tylenol 1 tab PO Q4HR PRN #10 tablet 04/13/20 Unknown Rx /Codeine # 3 tab] Ibuprofen [Motrin] 800 mg PO Q8HR PRN #30 tablet 04/13/20 Unknown Rx Butalb/Acetamin/Caff 50-325-40 1 each PO Q4H PRN #15 tablet 11/06/20 Unknown Rx [Fioricet 50-325-40] ED Physical Exam - General Limitations: No Limitations General appearance: alert, in no apparent distress - Head Head exam: Present: atraumatic, normocephalic, normal inspection - Eye Eye exam: Present: normal appearance, PERRL, EOMI Pupils: Present: normal accommodation - Neck Neck exam: Present: normal inspection, full ROM - Respiratory Respiratory exam: Present: normal lung sounds bilaterally. Absent: respiratory distress, wheezes, rales, rhonchi - Cardiovascular Cardiovascular Exam: Present: regular rate, normal rhythm, normal heart sounds - GI/Abdominal GI/Abdominal exam: Present: soft. Absent: distended, tenderness, guarding, rebound - Neurological Exam Neurological exam: Present: alert, oriented X3, CN II-XII intact, normal gait - Psychiatric Psychiatric exam: Present: normal affect, normal mood - Skin Skin exam: Present: intact ED Course Vital Signs 11/06/20 09:42 Temperature 97.9 F Pulse Rate 89 Respiratory 20 Rate Blood Pressure 128/73 [Right] O2 Sat by Pulse 99 Oximetry ED Medical Decision Making - Medical Decision Making The patient presented to the emergency department with a headache. The patient is now resting comfortably and, is alert, talkative, interactive and in no distress. The patient appears well and there is no signs of dehydration. The patient is neurologically intact, has a normal mental status, and is ambulatory in the ER. The history, exam, and the patient's current condition does not suggest meningitis, stroke, sepsis, subarachnoid hemorrhage, intracranial bleeding, encephalitis, temporal arteritis or other significant pathology to warrant further testing, continued ED treatment, admission, neurological consultation or other specialist evaluation at this point. Heart vital signs have been stable. The patient's condition is stable and appropriate for discharge. The patient will pursue further outpatient evaluation with the primary care physician or other designated or consulting physician as indicated in the discharge instruction. Critical care attestation.: If time is entered above; I have spent that time in minutes in the direct care of this critically ill patient, excluding procedure time. ED Disposition Clinical Impression: Headache Disposition: 01 HOME / SELF CARE / HOMELESS Is pt being admited?: No Does the pt Need Aspirin: No Condition: Stable Instructions: Migraine Headache, [id number], Tension Headache, Adult, [id number] Additional Instructions: Recommend that you take the Fioricet as prescribed. Follow-up with your primary care doctor next week, you may need referral to neurologist for further evaluation of these headaches and your PCP can give you referral. Return to the ER if your symptoms changes or worsens in any way. Prescriptions: Butalb/Acetamin/Caff 50-325-40 [Fioricet 50-325-40] 1 each PO Q4H PRN #15 tablet PRN Reason: Headache Referrals: [facility] [Provider Group] - 3-5 Days Forms: Work/School Release Form(ED) Time of Disposition: 12:25
== END 2020-11-06 12:30 | disposition home or self-care (01) ==
LOC: ED 09:37
DX: R51.9 Headache, unspecified (principal); I10 Essential (primary) hypertension; J45.909 Unspecified asthma, uncomplicated; Z98.890 Other specified postprocedural states
CPT/HCPCS: 99281

== ENCOUNTER 2020-11-17 10:39 | Emergency (ER) | payer MEDICAID ==
[2020-11-17 10:58] VITALS: BP 142/75
[2020-11-17 12:47] LABS: Bacteria,Urine 1+ /HPF (Negative); Bilirubin,Urine NEG (Negative); Blood,Urine NEG (Negative); Color,Urine Yellow (Yellow); Mucus,Urine FEW /HPF; Protein,Urine <15 mg/dL mg/dL (Negative); Sperm,Urine FEW /HPF (NP)
--- NOTE | 2020-11-17 13:07 | Emergency Department Report ---
ED Back Pain/Injury HPI - General Chief Complaint: Pain General Stated Complaint: BODY PAIN Time Seen by Provider: 11/17/20 11:07 Source: patient Limitations: No Limitations - History of Present Illness Initial Comments: Patient is a 30-year-old female presents emergency room complaints of back pain for 1 month. 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 She states yesterday she did some heavy lifting. She denies any fall, injury, trauma. She states that she is also had some urinary frequency and dark urine. She denies any fever, nausea, vomiting, diarrhea, dysuria, numbness, weakness, bowel or bladder incontinence, saddle numbness. She denies any steroid use, history of cancer, IV drug use. Patient denies any past medical history. No allergies to medications. - Related Data Previous Rx's Medication Instructions Recorded Last Taken Type Fluticasone/Salmeterol [Advair 1 puff IH BID #1 disk.w.dev 10/21/15 Unknown Rx Diskus 250-50 mcg] Albuterol Sulfate [Ventolin HFA] 2 puff IH Q4H PRN #1 hfa.aer.ad 07/08/16 Unknown Rx Cetirizine HCl [ZyrTEC 10mg cap] 10 mg PO QDAY #30 capsule 07/08/16 Unknown Rx Fluticasone [Flonase] 1 spray NS QDAY #1 bottle 07/08/16 Unknown Rx Metoclopramide [Reglan] 10 mg IM TID PRN #15 vial 10/04/16 Unknown Rx ALBUTEROL Inhaler(NF) [VENTOLIN 2 puff IH Q4H PRN #1 inha 07/10/18 Unknown Rx Inhaler(NF)] Azithromycin [Zithromax Z-ANGEL] 250 mg PO DAILY #6 tab 07/10/18 Unknown Rx Benzonatate [Tessalon Perles] 100 mg PO Q8HR PRN #30 capsule 07/10/18 Unknown Rx Albuterol Mdi (or & Nicu Only) 2 puff IH QID PRN #1 inhalation 09/18/18 Unknown Rx [ProAir HFA Inhaler] Acetaminophen/Codeine [Tylenol 1 tab PO Q4HR PRN #10 tablet 04/13/20 Unknown Rx /Codeine # 3 tab] Ibuprofen [Motrin] 800 mg PO Q8HR PRN #30 tablet 04/13/20 Unknown Rx Butalb/Acetamin/Caff 50-325-40 1 each PO Q4H PRN #15 tablet 11/06/20 Unknown Rx [Fioricet 50-325-40] Naproxen 375 mg PO BID PRN #14 tablet 11/17/20 Unknown Rx cephALEXin [Keflex] 500 mg PO BID 7 Days #14 cap 11/17/20 Unknown Rx methOCARBAMOL [Robaxin TAB] 500 mg PO BID PRN #14 tab 11/17/20 Unknown Rx Allergies Allergy/AdvReac Type Severity Reaction Status Date / Time No Known Allergies Allergy Unverified 01/29/14 20:40 ED Review of Systems ROS: Stated complaint: BODY PAIN Other details as noted in HPI Comment: All other systems reviewed and negative ED Past Medical Hx - Past Medical History Previous Medical History?: Yes Hx Hypertension: Yes Hx CVA: No Hx Congestive Heart Failure: No Hx Diabetes: No Hx Asthma: Yes Hx COPD: No Hx HIV: No - Surgical History Past Surgical History?: Yes Additional Surgical History: - Social History Smoking Status: Current Every Day Smoker Substance Use Type: Alcohol - Medications Home Medications: Home Medications Medication Instructions Recorded Confirmed Last Taken Type Fluticasone/Salmeterol [Advair 1 puff IH BID #1 disk.w.dev 10/21/15 Unknown Rx Diskus 250-50 mcg] Albuterol Sulfate [Ventolin HFA] 2 puff IH Q4H PRN #1 hfa.aer.ad 07/08/16 Unknown Rx Cetirizine HCl [ZyrTEC 10mg cap] 10 mg PO QDAY #30 capsule 07/08/16 Unknown Rx Fluticasone [Flonase] 1 spray NS QDAY #1 bottle 07/08/16 Unknown Rx Metoclopramide [Reglan] 10 mg IM TID PRN #15 vial 10/04/16 Unknown Rx ALBUTEROL Inhaler(NF) [VENTOLIN 2 puff IH Q4H PRN #1 inha 07/10/18 Unknown Rx Inhaler(NF)] Azithromycin [Zithromax Z-ANGEL] 250 mg PO DAILY #6 tab 07/10/18 Unknown Rx Benzonatate [Tessalon Perles] 100 mg PO Q8HR PRN #30 capsule 07/10/18 Unknown Rx Albuterol Mdi (or & Nicu Only) 2 puff IH QID PRN #1 inhalation 09/18/18 Unknown Rx [ProAir HFA Inhaler] Acetaminophen/Codeine [Tylenol 1 tab PO Q4HR PRN #10 tablet 04/13/20 Unknown Rx /Codeine # 3 tab] Ibuprofen [Motrin] 800 mg PO Q8HR PRN #30 tablet 04/13/20 Unknown Rx Butalb/Acetamin/Caff 50-325-40 1 each PO Q4H PRN #15 tablet 11/06/20 Unknown Rx [Fioricet 50-325-40] Naproxen 375 mg PO BID PRN #14 tablet 11/17/20 Unknown Rx cephALEXin [Keflex] 500 mg PO BID 7 Days #14 cap 11/17/20 Unknown Rx methOCARBAMOL [Robaxin TAB] 500 mg PO BID PRN #14 tab 11/17/20 Unknown Rx ED Physical Exam - General Limitations: No Limitations General appearance: alert, in no apparent distress - Head Head exam: Present: atraumatic, normocephalic - Eye Eye exam: Present: normal appearance - ENT ENT exam: Present: mucous membranes moist - Neck Neck exam: Present: normal inspection, full ROM. Absent: tenderness, meningismus - Respiratory Respiratory exam: Present: normal lung sounds bilaterally. Absent: respiratory distress, wheezes, rales, rhonchi, stridor, chest wall tenderness, accessory muscle use, decreased breath sounds, prolonged expiratory - Cardiovascular Cardiovascular Exam: Present: regular rate, normal rhythm, normal heart sounds. Absent: systolic murmur, diastolic murmur, rubs, gallop - Back Exam Back exam: Present: normal inspection, full ROM, paraspinal tenderness (bilateral lumbar paraspinal muscular ttp, no midline C-spine, T-spine or L- spine ttp, no step offs, no deformities ). Absent: vertebral tenderness - Neurological Exam Neurological exam: Present: alert, oriented X3, CN II-XII intact, normal gait. Absent: motor sensory deficit - Psychiatric Psychiatric exam: Present: normal affect, normal mood - Skin Skin exam: Present: warm, dry, intact ED Course Vital Signs 11/17/20 10:57 Temperature 98 F Pulse Rate 64 Respiratory 20 Rate Blood Pressure 142/75 [Right] O2 Sat by Pulse 99 Oximetry ED Medical Decision Making - Lab Data Lab Results 11/17/20 Range/Units 12:27 Urine Color Yellow (Yellow) Urine Turbidity Clear (Clear) Urine pH 6.0 (5.0-7.0) Ur Specific [place] 1.004 (1.003-1.030) Urine Protein <15 mg/dl (Negative) mg/dL Urine Glucose (UA) Neg (Negative) mg/dL Urine Ketones Neg (Negative) mg/dL Urine Blood Neg (Negative) Urine Nitrite Neg (Negative) Urine Bilirubin Neg (Negative) Urine Urobilinogen 2.0 (<2.0) mg/dL Ur Leukocyte Esterase Sm (Negative) Urine WBC (Auto) 11.0 H (0.0-6.0) /HPF Urine RBC (Auto) 1.0 (0.0-6.0) /HPF U Epithel Cells (Auto) 5.0 (0-13.0) /HPF Urine Bacteria (Auto) 1+ (Negative) /HPF Urine Mucus Few /HPF 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 She states yesterday she did some heavy lifting. She denies any fall, injury, trauma. She states that she is also had some urinary frequency and dark urine. She denies any fever, nausea, vomiting, diarrhea, dysuria, numbness, weakness, bowel or bladder incontinence, saddle numbness. She denies any steroid use, history of cancer, IV drug use. Patient denies any past medical history. No allergies to medications. Vitals are stable. On exam:bi lateral lumbar paraspinal muscular ttp, no midline C-spine, T-spine or L-spine ttp, no step offs, no deformities, no focal neuro deficits. Patient has no red flag warning signs of back pain, no trauma, no unexplained weight loss, no fever, no IV drug use, no steroid use, no history of cancer, no neuro deficits, age is not greater than 50, no saddle numbness. UA shows evidence of UTI. Patient given prescription for medication. Advised patient Please take medication as prescribed. Increase your fluid intake. Follow-up with a primary care doctor for reexamination. You need to have your urine retested by primary care doctor for clearance of bacteria. Return to emergency room for any new or worsening symptoms. Critical care attestation.: If time is entered above; I have spent that time in minutes in the direct care of this critically ill patient, excluding procedure time. ED Disposition Clinical Impression: UTI (urinary tract infection) Qualifiers: Urinary tract infection type: acute cystitis Hematuria presence: without hematuria Qualified Code(s): N30.00 - Acute cystitis without hematuria Back pain Qualifiers: Back pain location: low back pain Chronicity: acute Back pain laterality: bilateral Sciatica presence: without sciatica Qualified Code(s): M54.5 - Low back pain Disposition: HOME / SELF CARE / HOMELESS Is pt being admited?: No Does the pt Need Aspirin: No Condition: Stable Instructions: Muscle Strain, [id number], Urinary Tract Infection, Adult Additional Instructions: Please take medication as prescribed. Increase your fluid intake. Follow-up with a primary care doctor for reexamination. You need to have your urine retested by primary care doctor for clearance of bacteria. Return to emergency room for any new or worsening symptoms. Prescriptions: cephALEXin [Keflex] 500 mg PO BID 7 Days #14 cap Naproxen 375 mg PO BID PRN #14 tablet PRN Reason: pain methOCARBAMOL [Robaxin TAB] 500 mg PO BID PRN #14 tab PRN Reason: muscle spasm/pain Referrals: KAI CORDOVA MD [Staff Physician] - 3-5 Days [facility] [Provider Group] - 3-5 Days Time of Disposition: 13:23 Print Language: CA[place] ISLANDER
[2020-11-17 13:18] LABS: HCG Qualitative,Urine Negative (Negative)
== END 2020-11-17 13:50 | disposition home or self-care (01) ==
LOC: ED 10:39
DX: N39.0 Urinary tract infection, site not specified (principal); M54.9 Dorsalgia, unspecified; I10 Essential (primary) hypertension; J45.909 Unspecified asthma, uncomplicated; Z98.890 Other specified postprocedural states; F17.200 Nicotine dependence, unspecified, uncomplicated
CPT/HCPCS: 81001; 81025; 87086; 99283

== ENCOUNTER 2020-12-13 01:41 | Emergency (ER) | payer MEDICAID ==
[2020-12-13] MEDS ORDERED: ASPIRIN 325 MG TAB PO ONE (02:38)
--- NOTE | 2020-12-13 02:45 | Emergency Department Report ---
ED Chest Pain HPI - General Chief Complaint: Chest Pain Stated Complaint: CHEST PAIN/HEADACHE PUI?: No Time Seen by Provider: 12/13/20 02:38 Source: patient, EMS Mode of arrival: Stretcher Limitations: No Limitations - History of Present Illness Initial Comments: Patient is a 30-year-old female who presents emergency room with complaints of substernal chest pain. Patient dates that started at 10 PM yesterday. Patient states well for approximately 5 hours. Patient states the pain is unchanged. Patient states pain is constant. Patient states the pain is better with rest and worse with movement. Patient denies trauma to the chest wall. Patient denies injury to the chest wall. Patient denies any recent change in activity. Patient denies shortness of breath. Patient denies fever chills. Patient denies recent travel. Patient denies recent international travel. Patient denies exposure to the novel coronavirus. Patient denies sick contacts. Patient denies fever and chills. Patient denies cough. Patient denies diarrhea. Patient denies coming in contact with anybody with symptoms of the novel coronavirus. MD Complaint: chest pain -: Sudden, hour(s) Onset: during rest Pain Location: substernal Pain Radiation: none Severity: severe Severity scale (0 -10): 8 Quality: sharp Consistency: constant Improves With: rest, remaining still Worsens With: movement re: denies: nausea, vomting, diaphoresis, dyspnea, sense of impending doom Other Symptoms: denies: cough, fever, syncope, rash, acid taste in mouth, leg swelling, palpitations, burping Treatments Prior to Arrival: none Aspirin use within the Past 7 Days: (0) No - Related Data On Oral Contraceptives: No Previous Rx's Medication Instructions Recorded Last Taken Type Fluticasone/Salmeterol [Advair 1 puff IH BID #1 disk.w.dev 10/21/15 Unknown Rx Diskus 250-50 mcg] Albuterol Sulfate [Ventolin HFA] 2 puff IH Q4H PRN #1 hfa.aer.ad 07/08/16 Unknown Rx Cetirizine HCl [ZyrTEC 10mg cap] 10 mg PO QDAY #30 capsule 07/08/16 Unknown Rx Fluticasone [Flonase] 1 spray NS QDAY #1 bottle 07/08/16 Unknown Rx Metoclopramide [Reglan] 10 mg IM TID PRN #15 vial 10/04/16 Unknown Rx ALBUTEROL Inhaler(NF) [VENTOLIN 2 puff IH Q4H PRN #1 inha 07/10/18 Unknown Rx Inhaler(NF)] Azithromycin [Zithromax Z-ANGEL] 250 mg PO DAILY #6 tab 07/10/18 Unknown Rx Benzonatate [Tessalon Perles] 100 mg PO Q8HR PRN #30 capsule 07/10/18 Unknown Rx Albuterol Mdi (or & Nicu Only) 2 puff IH QID PRN #1 inhalation 09/18/18 Unknown Rx [ProAir HFA Inhaler] Acetaminophen/Codeine [Tylenol 1 tab PO Q4HR PRN #10 tablet 04/13/20 Unknown Rx /Codeine # 3 tab] Ibuprofen [Motrin] 800 mg PO Q8HR PRN #30 tablet 04/13/20 Unknown Rx Butalb/Acetamin/Caff 50-325-40 1 each PO Q4H PRN #15 tablet 11/06/20 Unknown Rx [Fioricet 50-325-40] Naproxen 375 mg PO BID PRN #14 tablet 11/17/20 Unknown Rx cephALEXin [Keflex] 500 mg PO BID 7 Days #14 cap 11/17/20 Unknown Rx methOCARBAMOL [Robaxin TAB] 500 mg PO BID PRN #14 tab 11/17/20 Unknown Rx Allergies Allergy/AdvReac Type Severity Reaction Status Date / Time No Known Allergies Allergy Unverified 01/29/14 20:40 Heart Score - HEART Score History: Slightly suspicious EKG: Normal Age: < 45 Risk factors: 1-2 risk factors Troponin: < normal limit HEART Score: 1 - EKG Read Time Time EKG Completed: 02:33 EKG Read Time: 02:34 ED Review of Systems ROS: Stated complaint: CHEST PAIN/HEADACHE Other details as noted in HPI Constitutional: denies: chills, fever Eyes: denies: eye pain, eye discharge, vision change ENT: denies: ear pain, throat pain Respiratory: denies: cough, shortness of breath, wheezing Cardiovascular: as per HPI, chest pain. denies: palpitations Endocrine: no symptoms reported Gastrointestinal: denies: abdominal pain, nausea, diarrhea Genitourinary: denies: urgency, dysuria, discharge Musculoskeletal: denies: back pain, joint swelling, arthralgia Skin: denies: rash, lesions Neurological: denies: headache, weakness, paresthesias Psychiatric: denies: anxiety, depression Hematological/Lymphatic: denies: easy bleeding, easy bruising ED Past Medical Hx - Past Medical History Previous Medical History?: Yes Hx Hypertension: Yes Hx CVA: No Hx Congestive Heart Failure: No Hx Diabetes: No Hx Asthma: Yes Hx COPD: No Hx HIV: No - Surgical History Past Surgical History?: Yes Additional Surgical History: - Family History Family history: no significant - Social History Smoking Status: Current Every Day Smoker Substance Use Type: Alcohol - Medications Home Medications: Home Medications Medication Instructions Recorded Confirmed Last Taken Type Fluticasone/Salmeterol [Advair 1 puff IH BID #1 disk.w.dev 10/21/15 Unknown Rx Diskus 250-50 mcg] Albuterol Sulfate [Ventolin HFA] 2 puff IH Q4H PRN #1 hfa.aer.ad 07/08/16 Unknown Rx Cetirizine HCl [ZyrTEC 10mg cap] 10 mg PO QDAY #30 capsule 07/08/16 Unknown Rx Fluticasone [Flonase] 1 spray NS QDAY #1 bottle 07/08/16 Unknown Rx Metoclopramide [Reglan] 10 mg IM TID PRN #15 vial 10/04/16 Unknown Rx ALBUTEROL Inhaler(NF) [VENTOLIN 2 puff IH Q4H PRN #1 inha 07/10/18 Unknown Rx Inhaler(NF)] Azithromycin [Zithromax Z-ANGEL] 250 mg PO DAILY #6 tab 07/10/18 Unknown Rx Benzonatate [Tessalon Perles] 100 mg PO Q8HR PRN #30 capsule 07/10/18 Unknown Rx Albuterol Mdi (or & Nicu Only) 2 puff IH QID PRN #1 inhalation 09/18/18 Unknown Rx [ProAir HFA Inhaler] Acetaminophen/Codeine [Tylenol 1 tab PO Q4HR PRN #10 tablet 04/13/20 Unknown Rx /Codeine # 3 tab] Ibuprofen [Motrin] 800 mg PO Q8HR PRN #30 tablet 04/13/20 Unknown Rx Butalb/Acetamin/Caff 50-325-40 1 each PO Q4H PRN #15 tablet 11/06/20 Unknown Rx [Fioricet 50-325-40] Naproxen 375 mg PO BID PRN #14 tablet 11/17/20 Unknown Rx cephALEXin [Keflex] 500 mg PO BID 7 Days #14 cap 11/17/20 Unknown Rx methOCARBAMOL [Robaxin TAB] 500 mg PO BID PRN #14 tab 11/17/20 Unknown Rx ED Physical Exam - General Limitations: No Limitations General appearance: alert, in no apparent distress - Head Head exam: Present: atraumatic, normocephalic - Eye Eye exam: Present: normal appearance, PERRL Pupils: Present: normal accommodation - ENT ENT exam: Present: mucous membranes moist - Neck Neck exam: Present: normal inspection - Respiratory Respiratory exam: Present: normal lung sounds bilaterally, chest wall tenderness (Palpation of the sternal border and the sternum reproduces symptoms.). Absent: respiratory distress, wheezes, rales, rhonchi - Cardiovascular Cardiovascular Exam: Present: regular rate, normal rhythm. Absent: systolic murmur, diastolic murmur, rubs, gallop - GI/Abdominal GI/Abdominal exam: Present: soft, normal bowel sounds - Extremities Exam Extremities exam: Present: normal inspection - Back Exam Back exam: Present: normal inspection - Neurological Exam Neurological exam: Present: alert, oriented X3 - Psychiatric Psychiatric exam: Present: normal affect, normal mood - Skin Skin exam: Present: warm, dry, intact, normal color. Absent: rash ED Course Vital Signs 12/13/20 02:17 Temperature 98.9 F Pulse Rate 88 Respiratory 18 Rate Blood Pressure 154/85 [Left] O2 Sat by Pulse 100 Oximetry - Reevaluation(s) Reevaluation #1: I discussed all results and clinical findings with patient. I discussed plan of care with patient. Patient agrees with plan of care. Patient is stable for discharge. Patient will be discharged home. Patient given discharge instructions. Patient voiced understanding of discharge instructions. 12/13/20 04:31 ARMANDO score - Armando Score Age > 65: (0) No Aspirin use within the Past 7 Days: (0) No 3 or more CAD Risk Factors: (0) No 2 or more Angina events in past 24 hrs: (0) No Known CAD with more than 50% Stenosis: (0) No Elevated Cardiac Markers: (0) No ST Deviation Greater than 0.5mm: (0) No ARMANDO Score: 0 ED Medical Decision Making - Lab Data Result diagrams: 12/13/20 02:50 12/13/20 02:50 - EKG Data -: EKG Interpreted by Me EKG shows normal: sinus rhythm, axis, intervals, QRS complexes, ST-T waves Rate: normal - Radiology Data Radiology results: report reviewed, image reviewed interpreted by me: Chest x-ray: No pneumonia, no pneumothorax, no foreign body, no osseous findings, no acute findings CHEST 1 VIEW INDICATION / CLINICAL INFORMATION: Chest Pain X 1 DAY. FINDINGS: SUPPORT DEVICES: None. HEART / MEDIASTINUM: No significant abnormality. LUNGS / PLEURA: No significant pulmonary or pleural abnormality. No pneumothorax. ADDITIONAL FINDINGS: No significant additional findings. IMPRESSION: 1. No acute findings. - Medical Decision Making Patient is a 30-year-old female that presents emergency room with complaints of chest pain. Patient states chest pain started 5 hours prior to arrival. Patient states states the pain is reproducible with palpation. Patient states the pain is worse with movement better with rest. Patient had a cardiac work- up. Patient had labs done. Patient's labs are essentially unremarkable. Patient troponin was negative. Patient EKG was normal. Patient's EKG shows normal sinus rhythm and normal ST. Patient had a chest x-ray which is negative for acute finding. Personally reviewed the chest x-ray and EKG. Patient does not require further emergency medical service. Patient not require inpatient service. Patient stable for discharge. Patient heart score is low. Patient can be followed up as an outpatient. Patient mostly faxed over to her local cardiology group for further evaluation and treatment and risk stratification. I discussed all results and clinical findings with patient. I discussed plan of care with patient. Patient agrees with plan of care. Patient is stable for discharge. Patient will be discharged home. Patient given discharge instructions. Patient voiced understanding of discharge instructions. - Differential Diagnosis Chest pain, chest wall pain, costochondritis, Critical care attestation.: If time is entered above; I have spent that time in minutes in the direct care of this critically ill patient, excluding procedure time. ED Disposition Clinical Impression: Costochondritis Chest pain Qualifiers: Chest pain type: unspecified Qualified Code(s): R07.9 - Chest pain, unspecified Disposition: 01 HOME / SELF CARE / HOMELESS Is pt being admited?: No Does the pt Need Aspirin: No Condition: Stable Instructions: Nonspecific Chest Pain, Adult, Chest Wall Pain, [id number], C ostochondritis Additional Instructions: Patient to follow-up with primary care in 2 to 3 days. Patient to follow-up with hot top liner in 2 to 3 days. Patient to rest. Patient to increase water. Patient to avoid strenuous exercise or heavy lifting until cleared by radiol ogy. Patient to take Tylenol or ibuprofen as needed for pain. Patient to return to the ER if condition worsens, changes or new symptoms arise. Referrals: ABDOULAYE HERNANDEZ [Other] - 2-3 Days AMNA LIU MD [Staff Physician] - 2-3 Days Time of Disposition: 04:34
[2020-12-13 03:07] LABS: Basophils % (Auto) 0.4 % (0.0-1.8); Eosinophils # (Auto) 0.1 K/mm3 (0.0-0.4); Eosinophils % (Auto) 1.1 % (0.0-4.3); Hematocrit 36.7 % (30.3-42.9); Hemoglobin 12.5 gm/dl (10.1-14.3); Lymphocytes # (Auto) 1.9 K/mm3 (1.2-5.4); Lymphocytes % (Auto) 27.9 % (13.4-35.0); Mean Corpuscular HGB Conc 34 % (30-34); Mean Corpuscular Volume 87 fl (79-97); Monocytes # (Auto) 0.6 K/mm3 (0.0-0.8); Monocytes % (Auto) 8.7 % (0.0-7.3); Platelet Count 245 K/mm3 (140-440); Red Blood Count 4.23 M/mm3 (3.65-5.03); Red Cell Distribution Width 14.7 % (13.2-15.2)
[2020-12-13 03:17] LABS: Partial Thromboplastin Time 34.4 Sec. (24.2-36.6)
[2020-12-13 03:32] LABS: Alanine Aminotransferase 13 units/L (7-56); Albumin 4.6 g/dL (3.9-5); BUN/Creatinine Ratio 9; Blood Urea Nitrogen 6 mg/dL (7-17); Hemolysis Index 1
--- NOTE | 2020-12-13 04:14 | XRay Report ---
CHEST 1 VIEW INDICATION / CLINICAL INFORMATION: Chest Pain X 1 DAY. FINDINGS: SUPPORT DEVICES: None. HEART / MEDIASTINUM: No significant abnormality. LUNGS / PLEURA: No significant pulmonary or pleural abnormality. No pneumothorax. ADDITIONAL FINDINGS: No significant additional findings. IMPRESSION: 1. No acute findings. Signer Name: Serjio Darnell MD Signed: 12/13/2020 4:09 AM Workstation Name: [id number]
[2020-12-13 04:47] VITALS: BP 138/75
--- NOTE | 2020-12-13 08:35 | Electrocardiograph Report ---
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
== END 2020-12-13 04:51 | disposition home or self-care (01) ==
LOC: ED 01:41
DX: M94.0 Chondrocostal junction syndrome [Tietze] (principal); R07.9 Chest pain, unspecified; I10 Essential (primary) hypertension; J45.909 Unspecified asthma, uncomplicated; Z98.890 Other specified postprocedural states; F17.200 Nicotine dependence, unspecified, uncomplicated
CPT/HCPCS: 36415; 71045; 80053; 84484; 84703; 85025; 85610; 85730; 93005; 99284

== ENCOUNTER 2021-01-08 04:56 | Emergency (ER) | payer MEDICAID ==
[2021-01-08 05:34] VITALS: BP 128/89
[2021-01-08] MEDS ORDERED: hydrOXYzine PAMOATE 25 MG CAP PO ONE (07:40)
--- NOTE | 2021-01-08 07:50 | Emergency Department Report ---
ED General Adult HPI - General Chief complaint: Abdominal Pain Stated complaint: ABDOMINAL CRAMPS Time Seen by Provider: 01/08/21 07:27 Source: patient, EMS Mode of arrival: Ambulatory Limitations: No Limitations - History of Present Illness Severity scale (0 -10): 8 - Related Data Previous Rx's Medication Instructions Recorded Last Taken Type Albuterol Mdi (or & Nicu Only) 2 puff IH QID PRN #1 inhalation 09/18/18 Unknown Rx [ProAir HFA Inhaler] Sulfamethoxazole/Trimethoprim 1 each PO BID #10 tablet 01/08/21 Unknown Rx [Bactrim DS TAB] Allergies Allergy/AdvReac Type Severity Reaction Status Date / Time No Known Allergies Allergy Unverified 01/29/14 20:40 ED Review of Systems ROS: Stated complaint: ABDOMINAL CRAMPS Other details as noted in HPI Comment: All other systems reviewed and negative ED Past Medical Hx - Past Medical History Hx Hypertension: Yes Hx CVA: No Hx Congestive Heart Failure: No Hx Diabetes: No Hx Asthma: Yes Hx COPD: No Hx HIV: No - Surgical History Past Surgical History?: Yes Additional Surgical History: - Family History Family history: no significant - Social History Smoking Status: Current Every Day Smoker Substance Use Type: Alcohol, Marijuana - Medications Home Medications: Home Medications Medication Instructions Recorded Confirmed Last Taken Type Albuterol Mdi (or & Nicu Only) 2 puff IH QID PRN #1 inhalation 09/18/18 Unknown Rx [ProAir HFA Inhaler] Sulfamethoxazole/Trimethoprim 1 each PO BID #10 tablet 01/08/21 Unknown Rx [Bactrim DS TAB] ED Physical Exam - General Limitations: No Limitations General appearance: alert, in no apparent distress - Head Head exam: Present: atraumatic, normocephalic - Eye Eye exam: Present: normal appearance - ENT ENT exam: Present: mucous membranes moist - Neck Neck exam: Present: normal inspection - Respiratory Respiratory exam: Present: normal lung sounds bilaterally. Absent: respiratory distress - Cardiovascular Cardiovascular Exam: Present: regular rate, normal rhythm. Absent: systolic murmur, diastolic murmur, rubs, gallop - GI/Abdominal GI/Abdominal exam: Present: soft, normal bowel sounds - Extremities Exam Extremities exam: Present: normal inspection - Back Exam Back exam: Present: normal inspection - Neurological Exam Neurological exam: Present: alert, oriented X3 - Psychiatric Psychiatric exam: Present: normal affect, normal mood - Skin Skin exam: Present: warm, dry, intact, normal color. Absent: rash ED Course Vital Signs 01/08/21 05:30 Temperature 98.4 F Pulse Rate 96 H Respiratory 20 Rate Blood Pressure 128/89 [Right] O2 Sat by Pulse 98 Oximetry ED Medical Decision Making - Medical Decision Making Labs 01/08/21 Unknown Urine Color Yellow Urine Turbidity Cloudy Urine pH 5.0 Ur Specific [place] 1.017 Urine Glucose (UA) Neg Urine Ketones Neg Urine Blood Sm Urine Nitrite Neg Urine Bilirubin Neg Urine Urobilinogen 4.0 Ur Leukocyte Esterase Mod Urine WBC (Auto) 67.0 H Urine RBC (Auto) 7.0 U Epithel Cells (Auto) 36.0 H Urine Mucus 1+ Urine HCG, Qual Negative Vital Signs 01/08/21 05:30 Temperature 98.4 F Pulse Rate 96 H Respiratory 20 Rate Blood Pressure 128/89 [Right] O2 Sat by Pulse 98 Oximetry Critical care attestation.: If time is entered above; I have spent that time in minutes in the direct care of this critically ill patient, excluding procedure time. ED Disposition Clinical Impression: UTI (urinary tract infection), Chronic anxiety Disposition: 01 HOME / SELF CARE / HOMELESS Is pt being admited?: No Does the pt Need Aspirin: No Condition: Stable Instructions: Abdominal Pain (ED), Urinary Tract Infection, Adult, [id number] Additional Instructions: meds as ordered today continue home meds drink a lot of water motrin or tylenol for pain follow up with pcp after you finish antibiotic to be sure this gone Referrals: DAVID JI,T [Other] - 3-5 Days KAI CORDOVA MD [Staff Physician] - 3-5 Days Time of Disposition: 09:29
[2021-01-08 09:22] LABS: Bilirubin,Urine NEG (Negative); Blood,Urine SM (Negative); Color,Urine Yellow (Yellow); Mucus,Urine 1+ /HPF
[2021-01-08 09:25] LABS: HCG Qualitative,Urine Negative (Negative)
[2021-01-08] MEDS ORDERED: SULFAMETHOXAZOLE/TRIMETHOPRIM 800/160MG DS TAB PO ONE (09:28)
== END 2021-01-08 09:50 | disposition home or self-care (01) ==
LOC: ED 04:56
DX: N39.0 Urinary tract infection, site not specified (principal); F41.9 Anxiety disorder, unspecified; G89.29 Other chronic pain; I10 Essential (primary) hypertension; J45.909 Unspecified asthma, uncomplicated; F17.200 Nicotine dependence, unspecified, uncomplicated; F12.90 Cannabis use, unspecified, uncomplicated; Z72.89 Other problems related to lifestyle; Z98.890 Other specified postprocedural states; Z79.899 Other long term (current) drug therapy
CPT/HCPCS: 81001; 81025; 87086; 99283; Q0177

== ENCOUNTER 2021-01-28 11:21 | Emergency (ER) | payer MEDICAID ==
--- NOTE | 2021-01-28 12:14 | Emergency Department Report ---
ED General Adult HPI - General Chief complaint: Chest Pain Stated complaint: Chest Pain Time Seen by Provider: 01/28/21 11:30 Source: patient Mode of arrival: Ambulatory Limitations: No Limitations - History of Present Illness Initial comments: 30-year-old -[place] female patient with history of hypertension and anxiety presents with complaints of cough x 1 day. Patient states she gets right-sided chest pain intermittently that is sharp. She denies any pain at current. She also denies any shortness of breath, hemoptysis, leg pain/swelling , recent long travel/surgeries, history of DVT/PE/cancer, or hormone use. Patient reports that she only came to the ED for a COVID-19 test. She denies being vaccinated. She also denies any loss of taste or smell, fever/chills/sweats, or recent known sick contacts. No family history of heart disease or personal history of heart disease per patient. - Related Data Previous Rx's Medication Instructions Recorded Last Taken Type Albuterol Mdi (or & Nicu Only) 2 puff IH QID PRN #1 inhalation 09/18/18 Unknown Rx [ProAir HFA Inhaler] Sulfamethoxazole/Trimethoprim 1 each PO BID #10 tablet 01/08/21 Unknown Rx [Bactrim DS TAB] Allergies Allergy/AdvReac Type Severity Reaction Status Date / Time No Known Allergies Allergy Verified 01/28/21 11:24 ED Review of Systems ROS: Stated complaint: Chest Pain Other details as noted in HPI Constitutional: denies: chills, diaphoresis, fever, malaise Respiratory: cough. denies: shortness of breath Cardiovascular: as per HPI. denies: edema, syncope Gastrointestinal: denies: abdominal pain Musculoskeletal: denies: back pain Neurological: denies: headache ED Past Medical Hx - Past Medical History Hx Hypertension: Yes Hx CVA: No Hx Congestive Heart Failure: No Hx Diabetes: No Hx Asthma: Yes Hx COPD: No Hx HIV: No - Surgical History Additional Surgical History: - Social History Smoking Status: Current Every Day Smoker Substance Use Type: Alcohol, Marijuana - Medications Home Medications: Home Medications Medication Instructions Recorded Confirmed Last Taken Type Albuterol Mdi (or & Nicu Only) 2 puff IH QID PRN #1 inhalation 09/18/18 Unknown Rx [ProAir HFA Inhaler] Sulfamethoxazole/Trimethoprim 1 each PO BID #10 tablet 01/08/21 Unknown Rx [Bactrim DS TAB] ED Physical Exam - General Limitations: No Limitations General appearance: alert, in no apparent distress - Head Head exam: Present: atraumatic, normocephalic - Eye Eye exam: Present: normal appearance - Neck Neck exam: Present: normal inspection, full ROM - Respiratory Respiratory exam: Present: normal lung sounds bilaterally. Absent: respiratory distress - Cardiovascular Cardiovascular Exam: Present: regular rate, normal rhythm - Extremities Exam Extremities exam: Absent: calf tenderness (No swelling or tenderness noted to legs bilaterally) - Neurological Exam Neurological exam: Present: alert, oriented X3, normal gait - Psychiatric Psychiatric exam: Present: normal affect, normal mood - Skin Skin exam: Present: warm, dry, intact, normal color. Absent: rash ED Course Vital Signs 01/28/21 01/28/21 01/28/21 11:21 11:27 12:52 Temperature 98.4 F 97.8 F Pulse Rate 98 H 90 80 Respiratory 20 18 18 Rate Blood Pressure 119/64 Blood Pressure 125/79 [Right] O2 Sat by Pulse 100 98 100 Oximetry ED Medical Decision Making - EKG Data EKG shows normal: sinus rhythm Rate: normal - EKG Data Interpretation: normal EKG - Medical Decision Making 30-year-old -[place] female patient with history of hypertension and anxiety presents with complaints of cough x 1 day. Patient states she gets right-sided chest pain intermittently that is sharp. She denies any pain at current. She also denies any shortness of breath, hemoptysis, leg pain/swelling, recent long travel/surgeries, history of DVT/PE/cancer, or h ormone use. Patient reports that she only came to the ED for a COVID-19 test. She denies being vaccinated. She also denies any loss of taste or smell, fever/chills/sweats, or recent known sick contacts. No family history of heart disease or personal history of heart disease per patient. EKG is normal. Physical exam is normal. PERC score = 0. She continues to deny any chest pain. Offered patient chest x-ray and blood work,, however patient declines work-up and states she would like to be discharged home and have outpatient COVID-19 testing performed. Her vitals are normal and she is well- appearing, patient is stable for discharge home. Discussed in detail signs and symptoms that should prompt immediate return to ED, she verbalizes understanding. Critical care attestation.: If time is entered above; I have spent that time in minutes in the direct care of this critically ill patient, excluding procedure time. ED Disposition Clinical Impression: Cough Disposition: 01 HOME / SELF CARE / HOMELESS Is pt being admited?: No Condition: Stable Instructions: Cough, Adult Referrals: PRIMARY CARE, [Referring] - 3-5 Days
[2021-01-28 12:54] VITALS: BP 125/79
--- NOTE | 2021-01-29 14:36 | Electrocardiograph Report ---
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
== END 2021-01-28 12:54 | disposition home or self-care (01) ==
LOC: ED 11:21
DX: R05.9 Cough, unspecified (principal); R07.89 Other chest pain; I10 Essential (primary) hypertension; F17.200 Nicotine dependence, unspecified, uncomplicated; F12.90 Cannabis use, unspecified, uncomplicated; Z72.89 Other problems related to lifestyle; Z98.890 Other specified postprocedural states
CPT/HCPCS: 93005; 99282

== ENCOUNTER 2021-01-28 15:22 | Emergency (ER) | payer MEDICAID ==
[2021-01-28] MEDS ORDERED: ONDANSETRON 4 MG ODT TAB PO ONE (16:11)
[2021-01-28] MEDS ORDERED: HYOSCYAMINE SUBL 0.125 MG TAB SL ONE (16:11)
--- NOTE | 2021-01-28 16:24 | Emergency Department Report ---
- General Chief Complaint: Nausea/Vomiting/Diarrhea Stated Complaint: Diarrhea and Vomiting Time Seen by Provider: 01/28/21 15:34 Source: patient Mode of arrival: Ambulatory Limitations: No Limitations - History of Present Illness Initial Comments: Patient is a 30-year-old female presents emergency room complaints of a cough that began 2 weeks ago. She states that she was tested for COVID-19 2 weeks ago and reports was negative. Patient states approximately 1 hour prior to arrival for this visit she began having nausea and had 2 episodes of diarrhea. Patient is able to tolerate p.o. intake. She denies any vomiting. Patient has no fever, sore throat, shortness of breath. Past medical history of asthma. She endorses marijuana use. No allergies to medications. - Related Data Previous Rx's Medication Instructions Recorded Last Taken Type Albuterol Mdi (or & Nicu Only) 2 puff IH QID PRN #1 inhalation 09/18/18 Unknown Rx [ProAir HFA Inhaler] Sulfamethoxazole/Trimethoprim 1 each PO BID #10 tablet 01/08/21 Unknown Rx [Bactrim DS TAB] Benzonatate [Tessalon Perles] 100 mg PO Q8HR PRN #10 capsule 01/28/21 Unknown Rx Hyoscyamine Subl [Levsin Sl 0.125 0.125 mg SL Q6HR PRN #8 tab 01/28/21 Unknown Rx TAB] Ondansetron [Zofran Odt] 4 mg PO Q8HR PRN #8 tab.rapdis 01/28/21 Unknown Rx guaiFENesin ER [Mucinex ER] 600 mg PO Q12H #12 tablet.er 01/28/21 Unknown Rx Allergies Allergy/AdvReac Type Severity Reaction Status Date / Time No Known Allergies Allergy Verified 01/28/21 11:24 ED Review of Systems ROS: Stated complaint: Diarrhea and Vomiting Other details as noted in HPI Comment: All other systems reviewed and negative ED Past Medical Hx - Past Medical History Hx Hypertension: Yes Hx CVA: No Hx Congestive Heart Failure: No Hx Diabetes: No Hx Asthma: Yes Hx COPD: No Hx HIV: No - Surgical History Additional Surgical History: - Social History Smoking Status: Current Every Day Smoker Substance Use Type: Alcohol, Marijuana - Medications Home Medications: Home Medications Medication Instructions Recorded Confirmed Last Taken Type Albuterol Mdi (or & Nicu Only) 2 puff IH QID PRN #1 inhalation 09/18/18 Unknown Rx [ProAir HFA Inhaler] Sulfamethoxazole/Trimethoprim 1 each PO BID #10 tablet 01/08/21 Unknown Rx [Bactrim DS TAB] Benzonatate [Tessalon Perles] 100 mg PO Q8HR PRN #10 capsule 01/28/21 Unknown Rx Hyoscyamine Subl [Levsin Sl 0.125 0.125 mg SL Q6HR PRN #8 tab 01/28/21 Unknown Rx TAB] Ondansetron [Zofran Odt] 4 mg PO Q8HR PRN #8 tab.rapdis 01/28/21 Unknown Rx guaiFENesin ER [Mucinex ER] 600 mg PO Q12H #12 tablet.er 01/28/21 Unknown Rx ED Physical Exam - General Limitations: No Limitations General appearance: alert, in no apparent distress - Head Head exam: Present: atraumatic, normocephalic - Eye Eye exam: Present: normal appearance - ENT ENT exam: Present: mucous membranes moist - Respiratory Respiratory exam: Present: normal lung sounds bilaterally. Absent: respiratory distress, wheezes, rales, rhonchi, stridor, chest wall tenderness, accessory muscle use, decreased breath sounds, prolonged expiratory - Cardiovascular Cardiovascular Exam: Present: regular rate, normal rhythm, normal heart sounds. Absent: systolic murmur, diastolic murmur, rubs, gallop - GI/Abdominal GI/Abdominal exam: Present: soft, normal bowel sounds. Absent: distended, tenderness, guarding, rebound, rigid - Neurological Exam Neurological exam: Present: alert, oriented X3 - Psychiatric Psychiatric exam: Present: normal affect, normal mood - Skin Skin exam: Present: warm, dry, intact ED Course Vital Signs 01/28/21 01/28/21 01/28/21 15:27 17:20 17:22 Temperature 97.6 F 98.7 F Pulse Rate 98 H 114 H 86 Respiratory 16 16 Rate Blood Pressure 121/78 Blood Pressure 146/75 [Right] O2 Sat by Pulse 95 100 Oximetry ED Medical Decision Making - Radiology Data Radiology results: report reviewed Ordering Physician: SHELTON JUNG Date of Service: 01/28/21 Procedure(s): XR chest routine 2V Accession Number(s): [id number] cc: SHELTON JUNG Fluoro Time In Minutes: CHEST 2 VIEWS INDICATION / CLINICAL INFORMATION: Cough for 2 weeks. COMPARISON: 12/13/20. FINDINGS: SUPPORT DEVICES: None. HEART / MEDIASTINUM: The heart size and pulmonary vasculature are normal. LUNGS / PLEURA: No significant pulmonary or pleural abnormality. No pneumothorax. ADDITIONAL FINDINGS: No significant additional findings. IMPRESSION: No acute abnormality or significant change. Signer Name: Eagle Mckeon MD Signed: 01/28/2021 4:43 PM Workstation Name: [id number] Transcribed By: RT Dictated By: Eagle Mckeon MD Electronically Authenticated By: Eagle Mckeon MD Signed Date/Time: 01/28/211642 DD/ 42 TD/TT: Print - Medical Decision Making Patient is a 30-year-old female presents emergency room complaints of a cough that began 2 weeks ago. She states that she was tested for COVID-19 2 weeks ago and reports was negative. Patient states approximately 1 hour prior to arrival for this visit she began having nausea and had 2 episodes of diarrhea. Patient is able to tolerate p.o. intake. She denies any vomiting. Patient has no fever, sore throat, shortness of breath. Past medical history of asthma. She endorses marijuana use. No allergies to medications. Vitals are stable. On exam: breath sounds are clear bilaterally, no wheezing, no rales, no rhonchi, no accessory muscle use, no respiratory distress. CXR: IMPRESSION: No acute abnor mality or significant change. Symptoms likely related to viral URI. Discussed supportive care and symptomatic treatment with patient. Discussed the importance of outpatient follow-up. Discussed return precautions. Advised patient Please take medication as prescribed. Follow-up with your primary care doctor for reexamination. Return to emergency room immediately for any new or worsening symptoms. Recommend outpatient COVID-19 testing if positive will need to self quarantine for 10 days from onset of symptoms. Critical care attestation.: If time is entered above; I have spent that time in minutes in the direct care of this critically ill patient, excluding procedure time. ED Disposition Clinical Impression: Upper respiratory infection Qualifiers: URI type: unspecified URI Qualified Code(s): J06.9 - Acute upper respiratory infection, unspecified Disposition: 01 HOME / SELF CARE / HOMELESS Is pt being admited?: No Does the pt Need Aspirin: No Condition: Stable Instructions: Viral Respiratory Infection Additional Instructions: Please take medication as prescribed. Follow-up with your primary care doctor for reexamination. Return to emergency room immediately for any new or worsening symptoms. Recommend outpatient COVID-19 testing if positive will need to self quarantine for 10 days from onset of symptoms. Prescriptions: Hyoscyamine Subl [Levsin Sl 0.125 TAB] 0.125 mg SL Q6HR PRN #8 tab PRN Reason: abd cramping/diarrhea guaiFENesin ER [Mucinex ER] 600 mg PO Q12H #12 tablet.er Benzonatate [Tessalon Perles] 100 mg PO Q8HR PRN #10 capsule PRN Reason: cough Ondansetron [Zofran Odt] 4 mg PO Q8HR PRN #8 tab.rapdis PRN Reason: nausea/vomiting Referrals: PRIMARY MD PHI [Primary Care Provider] - 3-5 Days KAI CORDOVA MD [Staff Physician] - 3-[address] [facility] [Provider Group] - 3-5 Days Time of Disposition: 16:51 Print Language: BULGARIAN
--- NOTE | 2021-01-28 16:48 | XRay Report ---
CHEST 2 VIEWS INDICATION / CLINICAL INFORMATION: Cough for 2 weeks. COMPARISON: 12/13/20. FINDINGS: SUPPORT DEVICES: None. HEART / MEDIASTINUM: The heart size and pulmonary vasculature are normal. LUNGS / PLEURA: No significant pulmonary or pleural abnormality. No pneumothorax. ADDITIONAL FINDINGS: No significant additional findings. IMPRESSION: No acute abnormality or significant change. Signer Name: Eagle Mckeon MD Signed: 01/28/2021 4:43 PM Workstation Name: [id number]
[2021-01-28 17:29] VITALS: BP 146/75
== END 2021-01-28 17:29 | disposition home or self-care (01) ==
LOC: ED 15:22
DX: J06.9 Acute upper respiratory infection, unspecified (principal); R19.7 Diarrhea, unspecified; I10 Essential (primary) hypertension; Z79.899 Other long term (current) drug therapy
CPT/HCPCS: 71046; 93005; 99282; 99283; J3490; Q0162

== ENCOUNTER 2021-03-12 00:33 | Emergency (ER) | payer MEDICAID ==
--- NOTE | 2021-03-12 03:20 | Emergency Department Report ---
ED General Adult HPI - General Chief complaint: Anxiety Stated complaint: PANIC ATTACK Source: EMS Mode of arrival: Stretcher Limitations: No Limitations - History of Present Illness Initial comments: Patient is a 30-year-old -[place] female with a history of hypertension and asthma presented to the ED with complaint of acute onset persistent intermittently elevated blood pressure, and right-sided chest tightness for the last 8 hours. Patient also complains of intermittent diarrhea after spending time with the child that had similar symptoms 24 hours ago. Patient stated that her blood pressure has always been high but she has not been placed on any blood pressure medications. Patient denies shortness of breath, dizziness, syncope, cough, sore throat, abdominal pain, nausea and vomiting, diaphoresis, headache, change in vision, palpitations, dysuria, urinary frequency and urgency, heavy lifting or fall and traumatic injury or hemoptysis. MD Complaint: Elevated blood pressure, anxious -: Sudden, hour(s) (8) Location: chest Radiation: non-radiation Severity scale (0 -10): 0 Quality: dull Consistency: intermittent Improves with: none Worsens with: none Associated Symptoms: denies other symptoms, chest pain (Right-sided chest tightness). denies: confusion, cough, diaphoresis, headaches, loss of appetite, malaise, nausea/vomiting, rash, seizure, shortness of breath, syncope, weakness Treatments Prior to Arrival: none - Related Data Previous Rx's Medication Instructions Recorded Last Taken Type Albuterol Mdi (or & Nicu Only) 2 puff IH QID PRN #1 inhalation 09/18/18 Unknown Rx [ProAir HFA Inhaler] Sulfamethoxazole/Trimethoprim 1 each PO BID #10 tablet 01/08/21 Unknown Rx [Bactrim DS TAB] Benzonatate [Tessalon Perles] 100 mg PO Q8HR PRN #10 capsule 01/28/21 Unknown Rx Hyoscyamine Subl [Levsin Sl 0.125 0.125 mg SL Q6HR PRN #8 tab 01/28/21 Unknown Rx TAB] Ondansetron [Zofran Odt] 4 mg PO Q8HR PRN #8 tab.rapdis 01/28/21 Unknown Rx guaiFENesin ER [Mucinex ER] 600 mg PO Q12H #12 tablet.er 01/28/21 Unknown Rx amLODIPine 5 mg PO DAILY #60 tab 03/12/21 Unknown Rx hydrOXYzine PAMOATE [Vistaril] 25 mg PO Q8H PRN #30 capsule 03/12/21 Unknown Rx Allergies Allergy/AdvReac Type Severity Reaction Status Date / Time No Known Allergies Allergy Verified 01/28/21 11:24 ED Review of Systems ROS: Stated complaint: PANIC ATTACK Other details as noted in HPI Constitutional: malaise. denies: chills, fever Eyes: denies: eye pain, eye discharge, vision change ENT: denies: ear pain, throat pain Respiratory: denies: cough, shortness of breath, wheezing Cardiovascular: chest pain (Right-sided chest tightness). denies: palpitations Endocrine: no symptoms reported Gastrointestinal: diarrhea. denies: abdominal pain, nausea, vomiting Genitourinary: denies: urgency, dysuria, discharge Musculoskeletal: denies: back pain, joint swelling, arthralgia Skin: denies: rash, lesions Neurological: denies: headache, weakness, paresthesias Psychiatric: anxiety. denies: depression Hematological/Lymphatic: denies: easy bleeding, easy bruising ED Past Medical Hx - Past Medical History Hx Hypertension: Yes Hx CVA: No Hx Congestive Heart Failure: No Hx Diabetes: No Hx Asthma: Yes Hx COPD: No Hx HIV: No - Surgical History Additional Surgical History: - Social History Smoking Status: Current Every Day Smoker Substance Use Type: Alcohol, Marijuana - Medications Home Medications: Home Medications Medication Instructions Recorded Confirmed Last Taken Type Albuterol Mdi (or & Nicu Only) 2 puff IH QID PRN #1 inhalation 09/18/18 Unknown Rx [ProAir HFA Inhaler] Sulfamethoxazole/Trimethoprim 1 each PO BID #10 tablet 01/08/21 Unknown Rx [Bactrim DS TAB] Benzonatate [Tessalon Perles] 100 mg PO Q8HR PRN #10 capsule 01/28/21 Unknown Rx Hyoscyamine Subl [Levsin Sl 0.125 0.125 mg SL Q6HR PRN #8 tab 01/28/21 Unknown Rx TAB] Ondansetron [Zofran Odt] 4 mg PO Q8HR PRN #8 tab.rapdis 01/28/21 Unknown Rx guaiFENesin ER [Mucinex ER] 600 mg PO Q12H #12 tablet.er 01/28/21 Unknown Rx amLODIPine 5 mg PO DAILY #60 tab 03/12/21 Unknown Rx hydrOXYzine PAMOATE [Vistaril] 25 mg PO Q8H PRN #30 capsule 03/12/21 Unknown Rx ED Physical Exam - General Limitations: No Limitations General appearance: alert, in no apparent distress - Head Head exam: Present: atraumatic, normocephalic, normal inspection - Eye Eye exam: Present: normal appearance, PERRL, EOMI Pupils: Present: normal accommodation - ENT ENT exam: Present: normal exam, normal orophraynx, mucous membranes moist, TM's normal bilaterally, normal external ear exam - Neck Neck exam: Present: normal inspection, full ROM - Respiratory Respiratory exam: Present: normal lung sounds bilaterally, chest wall tenderness (Palpable reproducible mild right chest wall tenderness). Absent: respiratory distress, wheezes, rales, rhonchi, accessory muscle use, decreased breath sounds, prolonged expiratory - Cardiovascular Cardiovascular Exam: Present: regular rate, normal rhythm, normal heart sounds. Absent: systolic murmur, diastolic murmur, rubs, gallop - GI/Abdominal GI/Abdominal exam: Present: soft, normal bowel sounds. Absent: tenderness, guarding, rebound, hyperactive bowel sounds, hypoactive bowel sounds, organomegaly, mass - Extremities Exam Extremities exam: Present: normal inspection, full ROM, normal capillary refill - Back Exam Back exam: Present: normal inspection, full ROM. Absent: tenderness, CVA tenderness (R), CVA tenderness (L), muscle spasm, vertebral tenderness - Neurological Exam Neurological exam: Present: alert, oriented X3, CN II-XII intact, normal gait, reflexes normal - Psychiatric Psychiatric exam: Present: normal affect, normal mood, anxious - Skin Skin exam: Present: warm, dry, intact, normal color. Absent: rash ED Course Vital Signs 03/12/21 00:38 Temperature 98.3 F Pulse Rate 85 Respiratory 16 Rate Blood Pressure 151/94 [Left] O2 Sat by Pulse 85 Oximetry ED Medical Decision Making - Medical Decision Making This is a 30-year-old -[place] female with a history of hypertension and asthma presented to the ED with complaint of acute onset persistent intermittently elevated blood pressure, and right-sided chest tightness for the last 8 hours. Patient also complains of intermittent diarrhea after spending time with the child that had similar symptoms 24 hours ago. Patient stated that her blood pressure has always been high but she has not been placed on any blood pressure medications. In the ED, patient is alert and oriented x3 and is not in any distress. Patient's blood pressure was 151/94 although she stated that her blood pressure was 156/107 prior to arrival in the ED. Patient stated that she would like to get be given a prescription for blood pressure medication. Patient was therefore discharged home on prescription of blood pressure medications. Patient is advised to follow-up with her primary care physician in 7 to 10 days for reevaluation or return to the ED immediately if symptoms get worse. - Differential Diagnosis Anxiety; viral gastroenteritis; uncontrolled hypertension Critical care attestation.: If time is entered above; I have spent that time in minutes in the direct care of this critically ill patient, excluding procedure time. ED Disposition Clinical Impression: Uncontrolled stage 2 hypertension, Anxiety as acute reaction to exceptional stress, Viral gastroenteritis Disposition: HOME / SELF CARE / HOMELESS Is pt being admited?: No Does the pt Need Aspirin: No Condition: Stable Instructions: Hypertension (ED), Viral Gastroenteritis, Adult, [id number], Hypertension, Adult, [id number], Generalized Anxiety Disorder, Adult Additional Instructions: Take medication with food, drink plenty of fluids and follow-up with your primary care physician in 7 to 10 days for reevaluation. Return to the ED immediately if symptoms get worse. Prescriptions: amLODIPine 5 mg PO DAILY #60 tab hydrOXYzine PAMOATE [Vistaril] 25 mg PO Q8H PRN #30 capsule PRN Reason: Anxiety Referrals: [facility] [Provider Group] - 7-10 days Time of Disposition: 03:22 Print Language: GEORGIAN
[2021-03-12 07:42] VITALS: BP 149/81
== END 2021-03-12 05:29 | disposition home or self-care (01) ==
LOC: ED 00:33
DX: I10 Essential (primary) hypertension (principal); F43.0 Acute stress reaction; A09 Infectious gastroenteritis and colitis, unspecified; F17.200 Nicotine dependence, unspecified, uncomplicated; F12.90 Cannabis use, unspecified, uncomplicated; F10.20 Alcohol dependence, uncomplicated; J45.909 Unspecified asthma, uncomplicated
CPT/HCPCS: 99283